=== PATIENT | female | born 1945 | race Caucasian/White ===

== ENCOUNTER 2017-10-23 00:45 | Inpatient (IN) | payer MEDICARE, SELFPAY ==
[2017-10-23] VITALS (16 sets, daily range): BP systolic 119–170; BP diastolic 67–91; PULSE 64–81; RESP 14–18; TEMP 36.3–36.6; O2SAT 96–100; BMI 25.9; BMI 26.0
--- NOTE | 2017-10-23 00:34 | MRI_ITS ---
STUDY: MRA OF THE HEAD WITHOUT CONTRAST REASON FOR EXAM: Female, 72 years old. cva, gait disturbance, irregular speech, blurred vision. TECHNIQUE: 3-D yzuy-oi-ljstae (TOF) imaging was performed with MIPs. The study was performed unenhanced. COMPARISON: None. FINDINGS: Normal bilateral petrous carotid arteries. Normal right cavernous carotid artery with a normal supraclinoid bifurcation. Normal left cavernous carotid artery with a normal supraclinoid bifurcation. Normal right A1 segments of the anterior cerebral artery. Normal left A1 segments of the anterior cerebral artery. Normal intact anterior communicating artery (ACOM). Normal bilateral A2 segments of the anterior cerebral arteries. Normal right M1 and M2 segments of the middle cerebral arteries, with a normal M1 bifurcation. Normal left M1 and M2 segments of the middle cerebral arteries, with a normal M1 bifurcation. Normal bilateral vertebral arteries. Normal basilar artery with a normal basilar bifurcation. The visualized bilateral superior cerebellar (SCA) arteries are normal. Normal bilateral P1, P2 and visualized P3 segments of the posterior cerebral arteries. There is no demonstrated aneurysm of the [place]. There is no major vessel occlusion or hemodynamically significant stenosis. There is no demonstrated abnormality of the visualized brain. MRI/MRA Head ONLY without Contrast IMPRESSION: Normal MRA of the head Electronically Signed: Macy Jamison MD at 8:54 EST Tel , Service support ,
--- NOTE | 2017-10-23 00:34 | MRI_ITS ---
STUDY: MRI BRAIN WITHOUT CONTRAST REASON FOR EXAM: Female, 72 years old. cva, gait disturbance, irregular speech, blurred vision; hx Hodgkins lymphoma- treatment ended 59 TECHNIQUE: Standardized multiplanar fat and water weighted pulse sequences were obtained. COMPARISON: December 19, 2015 FINDINGS: There is mild cerebral atrophy with widening of the extra-axial spaces and ventricular dilatation. There are periventricular and subcortical white matter hyperintensities, consistent with mild chronic microvascular ischemic changes. There are bilateral cerebellar chronic infarctions. There is a new but chronic left lateral temporal infarct as well. Normal bilateral basal ganglia. Normal thalami. There is no extra-axial fluid accumulation. Normal flow voids within the major intracranial circulation suggesting patency by spin echo criteria. Normal sella turcica, pituitary gland, infundibular stalk, optic chiasm and hypothalamus. Normal tectal plate and pineal gland. There is bilateral mastoid air cell fluid. Normal visualized paranasal sinuses. MRI/Brain without Contrast IMPRESSION: No acute intracranial abnormality. Cerebellar and left temporal chronic infarcts. Electronically Signed: Macy Jamison MD at 9:36 EST Tel , Service support ,
--- NOTE | 2017-10-23 00:34 | MRI_ITS ---
STUDY: MRA NECK WITHOUT CONTRAST REASON FOR EXAM: Female, 72 years old. cva, gait disturbance, irregular speech, blurred vision. TECHNIQUE: Source images were obtained, MIPs were performed. The study was performed unenhanced. COMPARISON: None. FINDINGS: RIGHT CAROTID ARTERIES: Normal right common carotid artery (CCA). Normal right common carotid bulb. Normal origin of the right internal carotid (ICA) artery without a hemodynamically significant stenosis. Normal visualized cervical portion of the right internal carotid artery. Normal origin of the right external carotid artery (ECA). LEFT CAROTID ARTERIES: Normal left common carotid artery (CCA). Normal left common carotid bulb. Normal origin of the left internal carotid (ICA) artery without a hemodynamically significant stenosis. Normal visualized cervical portion of the left internal carotid artery. Normal origin of the left external carotid artery (ECA). VERTEBRAL ARTERIES: Normal antegrade flow within the bilateral vertebral artery without a hemodynamically significant stenosis. MRI/MRA Neck without Contrast IMPRESSION: Normal bilateral cervical carotid and vertebral arteries. Electronically Signed: Macy Jamison MD at 8:59 EST Tel , Service support ,
--- NOTE | 2017-10-23 00:37 | ECHOD_ITS ---
Reason For Study: TIA/CVA Procedure This was a 2D Doppler, Color Flow transthoracic echocardiogram. Exam performed portable in patient room. Left Ventricle Mild concentric left ventricular hypertrophy. The estimated ejection fraction is 65 %. No regional wall motion abnormalities noted. Right Ventricle Normal size and thickness. Normal systolic function. Atria Normal left atrium. Normal right atrium. Normal atrial septum. Mitral Valve Mild diffuse mitral valve calcification. Severe mitral annular calcification extending into the posterior leaflet. The mitral papillary muscle appears thickened and/or calcified. Mild mitral valve stenosis. Peak transmitral valve gradient 17 mmHg. Mean transmitral valve gradient 4 mmHg. Tricuspid Valve Normal tricuspid valve. Mild (1+) tricuspid valve insufficiency. Right ventricular systolic pressure estimated to be 29 mmHg. Aortic Valve Trisinus/trileaflet aortic valve. Pulmonic Valve Normal pulmonic valve. Great Vessels Normal aortic root. Normal arch. Normal inferior vena cava. Inferior vena cava collapse with sniff. Pericardium/Pleural No pericardial effusion. MMode/2D Measurements & Calculations LVIDd: 4.0 cm IVSd: 1.2 cm Ao root diam: 3.1 cm LVIDs: 2.7 cm LVPWd: 1.4 cm LA dimension: 3.2 cm RVDd: 3.1 cm FS: 33.8 % LAV(MOD-bp): 61.8 ml LA A4 area: 18.4 cm2 RA A4 area: 10.7 cm2 LAV(MOD-bp) Indexed: 37.5 ml/m2 LAV(MOD-sp2): 63.3 ml LAV(MOD-sp4): 57.2 ml Doppler Measurements & Calculations MV E max femi: 99.8 cm/sec Lat Peak E' Femi: 3.5 cm/sec Med Peak E' Femi: 2.9 cm/sec MV A max femi: 177.4 cm/sec E/E' lat: 28.1 E/E' med: 34.4 MV E/A: 0.56 MV V2 max: 205.9 cm/sec Ao V2 max: 127.3 cm/sec LV V1 max: 95.3 cm/sec MV max P.0 mmHg Ao max P.5 mmHg LV V1 max P.6 mmHg MV V2 mean: 93.5 cm/sec MV mean P.3 mmHg MV V2 VTI: 49.2 cm PA V2 max: 51.8 cm/sec TR max femi: 238.7 cm/sec TR max P.8 mmHg Interpretation Summary Mild concentric left ventricular hypertrophy. The estimated ejection fraction is 65 %. The mitral papillary muscle appears thickened and/or calcified. Mild (1+) tricuspid valve insufficiency. Right ventricular systolic pressure estimated to be 29 mmHg. Mild mitral valve stenosis. Compared to echo report dated 02/21/2016, no appreciable changes noted. Ordering Physician: Ana Hawkins Referring Physician: Justine Vargas Performed By: Susu Briceno RDCS, RVT
--- NOTE | 2017-10-23 00:40 | PCM.HP.STD ---
Problem List (1) History of CVA (cerebrovascular accident) Status: Chronic (2) Acute CVA (cerebrovascular accident) Status: Acute (3) Hodgkin lymphoma, mixed cellularity Status: Chronic Qualifiers: Lymphoma site: unspecified region Qualified Code(s): C81.20 - Mixed cellularity Hodgkin lymphoma, unspecified site History of Present Illness Date of Admission: 10/23/17 Chief Complaint: Unstead gait, blurry vision, aphasia, ? slurred speech. The patient is a 72 y/o F w/ PMHx: Hodgkins Lymphoma Mixed Cellularity undergoing chemo and radiation following w/ Dr. Petit, History of Prior CVA who presents to the [facility] from [facility] [place] ED on 10/23/17 with history of ~ 1 week history of gait disturbance as well as irregular speech w/ garbled speech and difficulty expressing herself in addition to recent increased blurry vision with eventual family member encouragement to present to the ED for evaluation with transfer following [facility]SH ED evaluation to [facility] for further CVA evaluation. She notes taking a daily baby aspirin. At the OSH ED in [place] work-up included T 36.3, BP 150/82, heart rate 64, respiratory rate 18, 95% on room air, CBC with WBC 5, hemoglobin 14, platelet 104 without shift, CMP with sodium 136, chloride 99, CO2 27, potassium 3.7, BUN/Cr 47/1.8 (baseline 0.8), glucose 104, Alk phos 180, AST/ALT 50/77, EKG NSR, trop 0.06, CXR without acute findings, CT head w/ evidence of remote lacunar right cerebellar infarct, acute or subacute left lacunar infarct in the temporal lobe. Past Medical History Past Medical History (Chronic Problems): Chronic Problems History of CVA (cerebrovascular accident) (Chronic) Hodgkin lymphoma, mixed cellularity (Chronic) Allergies Sulfa (Sulfonamide Antibiotics) Allergy (Verified 05/08/17 13:11) Rash Home Medications: Ambulatory Orders Medication Instructions Recorded Multivit with Calcium,Iron,Min 1 each PO DAILY 09/09/15 [Multiple Vitamins For Women] Potassium Chloride [K-Dur] 20 meq PO DAILY 09/09/15 Pred-G 1% Eye Drops 1 drop EACH EYE DAILY 09/09/15 Vitamin K2 100 mcg PO DAILY 09/27/15 Vits A,C,E/Lutein/Minerals 1 each PO DAILY 09/27/15 [Ocuvite with Lutein Tablet] Cholecalciferol (Vitamin D3) 2,000 unit PO DAILY 10/11/15 [D3-2000] Brimonidine 0.15% [Alphagan P 1 drop EACH EYE DAILY 12/06/15 0.15%] Magnesium 400 mg PO BID 12/06/15 Ocuvite with Lutein Tablet 1 tab PO DAILY 12/26/16 Surgical History: - - Corneal transplant bilaterally, lymph node biopsies in the neck, tonsillectomy, appendectomy. 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 Denies: Chills, Fever, Weight Change Eyes: Reports: Blurred vision HEENT: Denies: Head Aches, Sinus Congestion, Sinus Drainage Cardiovascular: Denies: Chest Pain, Palpitations Respiratory: Denies: Cough, Shortness of breath at rest, Sputum production Gastrointestinal: Denies: Abdominal Pain, Nausea, Vomiting Genitourinary: Denies: Dysuria Musculoskeletal: Denies: Joint Pain, Joint Tenderness Skin: Denies: Rash, Wounds Neurological: Reports: Balance problems, Change in Speech, Slurred speech. Denies: Focal weakness, Numbness, Tingling Psychiatric: Denies: Anxiety, Depression, Homicidal Ideations, Suicidal Ideations Hematologic/ Lymphatic: Reports: Anemia. Denies: Easy Bruising, Easy Bleeding VTE Information - Inpt Only VTE Present on Admission: No VTE Mechan Device Prophylaxis: SCD's VTE Pharm Prophylaxis ordered?: Yes Subjective: Seated upright in the bed, NAD. Objective: Physical Examination: General: awake, alert, oriented x 3 but speech slow, pressured somewhat, cooperative, seated upright in bed in no apparent distress. Skin: normal color, turgor, no icterus, cyanosis. HEENT: AT/NC, EOMI, PERRLA, mildly dry MM, no carotid bruits or JVD noted. Lungs: CTA bilaterally, moderate effort, mild decrease BL bases, no rales, ronchi or wheezing. Heart: Regular rate and rhythm; no gallop, rub audible. Abdomen: soft, NTTP, ND, normal BS, no HSM. Extremities: no cyanosis, clubbing, or edema. Neurological: patient awake, alert, oriented x 3; cognitive function appears intact but suspect mildly decreased from baseline; pupils equally reactive to light and accomodation, no peripheral vision deficits, only complaint of blurry vision w/ need to bring things close to read; cranial nerves II-XII grossly normal, moving all 4 extremities, no focal deficits, strength appears preserved, HTS and FTN not marked, equiv babinski, aphasia present. Psychiatric: affect appears mildly flat, no acute evidence of depressive or anxiety feelings. Assessment/Plan The patient is a 72 y/o F w/ PMHx: Hodgkins Lymphoma Mixed Cellularity undergoing chemo and radiation following w/ Dr. Petit, History of Prior CVA who presents to the [facility] from [facility] [place] ED on 10/23/17 with history of ~ 1 week history of gait disturbance as well as irregular speech w/ garbled speech and difficulty expressing herself in addition to recent increased blurry vision with eventual family member encouragement to present to the ED for evaluation with transfer following OSH ED evaluation to [facility] for further CVA evaluation. (1) Acute or possible Subacute L Lacunar Temporal Lobe Infarction: O[facility] ED in [place] work-up included T 36.3, BP 150/82, heart rate 64, respiratory rate 18, 95% on room air, CBC with WBC 5, hemoglobin 14, platelet 104 without shift, CMP with sodium 136, chloride 99, CO2 27, potassium 3.7, BUN/Cr 47/1.8 (baseline 0.8), glucose 104, Alk phos 180, AST/ALT 50/77, EKG NSR, trop 0.06, CXR without acute findings, CT head w/ evidence of remote lacunar right cerebellar infarct, acute or subacute left lacunar infarct in the temporal lobe.Patient was administered additional ASA in the O[facility] ED. Will admit as direct admission to PCU, will obtain MRI Brain, MRA Head and Neck, ECHO, PT/OT/Speech/Nutrition evaluation per protocol. Will consult Neurology for evaluation given ongoing history. Will allow permissive HTN, maintain on asa-->transition to plavix, add statin w/ AM FLP, fall precautions. (2) Acute kidney injury: Unclear specific etiology, possible dehydration. Admission BUN/Cr 47/1.8, prior baseline creatinine noted to be 0.8. Will hydrate, hold nephrotoxic medications and repeat chemistry in AM. If no improvement would plan FeNa and renal US assessment. (3) Hodgkins Lymphoma Mixed Cellularity: Currently following w/ Dr. Petit, undergoing chemo and radiation. Mag, phos pending. (4) Elevated BP without HTN Dx: ED presentation BP elevated, continue to trend, currently permissive given acute CVA, if further elevated will add regimen once appropriate. (5) DVT Prophylaxis: SCDs, heparin. Code Visit Inpatient E&M: 22618 Init Hosp L3
--- NOTE | 2017-10-23 00:49 | HP.PCM_ITS ---
Problem List (1) History of CVA (cerebrovascular accident) Status: Chronic (2) Acute CVA (cerebrovascular accident) Status: Acute (3) Hodgkin lymphoma, mixed cellularity Status: Chronic Qualifiers: Lymphoma site: unspecified region Qualified Code(s): C81.20 - Mixed cellularity Hodgkin lymphoma, unspecified site History of Present Illness Date of Admission: 10/23/17 Chief Complaint: Unstead gait, blurry vision, aphasia, ? slurred speech. The patient is a 72 y/o F w/ PMHx: Hodgkins Lymphoma Mixed Cellularity undergoing chemo and radiation following w/ Dr. Petit, History of Prior CVA who presents to the [facility] from [facility] [place] ED on 10/23/17 with history of ~ 1 week history of gait disturbance as well as irregular speech w/ garbled speech and difficulty expressing herself in addition to recent increased blurry vision with eventual family member encouragement to present to the ED for evaluation with transfer following OSH ED evaluation to [facility] for further CVA evaluation. She notes taking a daily baby aspirin. At the OSH ED in [place] work-up included T 36.3, BP 150/82, heart rate 64, respiratory rate 18, 95% on room air , CBC with WBC 5, hemoglobin 14, platelet 104 without shift, CMP with sodium 136 , chloride 99, CO2 27, potassium 3.7, BUN/Cr 47/1.8 (baseline 0.8), glucose 104 , Alk phos 180, AST/ALT 50/77, EKG NSR, trop 0.06, CXR without acute findings, CT head w/ evidence of remote lacunar right cerebellar infarct, acute or subacute left lacunar infarct in the temporal lobe. Past Medical History Past Medical History (Chronic Problems): Chronic Problems History of CVA (cerebrovascular accident) (Chronic) Hodgkin lymphoma, mixed cellularity (Chronic) Allergies Sulfa (Sulfonamide Antibiotics) Allergy (Verified 05/08/17 13:11) Rash Home Medications: Ambulatory Orders Medication Instructions Recorded Multivit with Calcium,Iron,Min 1 each PO DAILY 09/09/15 [Multiple Vitamins For Women] Potassium Chloride [K-Dur] 20 meq PO DAILY 09/09/15 Pred-G 1% Eye Drops 1 drop EACH EYE DAILY 09/09/15 Vitamin K2 100 mcg PO DAILY 09/27/15 Vits A,C,E/Lutein/Minerals 1 each PO DAILY 09/27/15 [Ocuvite with Lutein Tablet] Cholecalciferol (Vitamin D3) 2,000 unit PO DAILY 10/11/15 [D3-2000] Brimonidine 0.15% [Alphagan P 1 drop EACH EYE DAILY 12/06/15 0.15%] Magnesium 400 mg PO BID 12/06/15 Ocuvite with Lutein Tablet 1 tab PO DAILY 12/26/16 Surgical History: - - Corneal transplant bilaterally, lymph node biopsies in the neck, tonsillectomy, appendectomy. 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 Denies: Chills, Fever, Weight Change Eyes: Reports: Blurred vision HEENT: Denies: Head Aches, Sinus Congestion, Sinus Drainage Cardiovascular: Denies: Chest Pain, Palpitations Respiratory: Denies: Cough, Shortness of breath at rest, Sputum production Gastrointestinal: Denies: Abdominal Pain, Nausea, Vomiting Genitourinary: Denies: Dysuria Musculoskeletal: Denies: Joint Pain, Joint Tenderness Skin: Denies: Rash, Wounds Neurological: Reports: Balance problems, Change in Speech, Slurred speech. Denies: Focal weakness, Numbness, Tingling Psychiatric: Denies: Anxiety, Depression, Homicidal Ideations, Suicidal Ideations Hematologic/ Lymphatic: Reports: Anemia. Denies: Easy Bruising, Easy Bleeding VTE Information - Inpt Only VTE Present on Admission: No VTE Mechan Device Prophylaxis: SCD's VTE Pharm Prophylaxis ordered?: Yes Subjective: Seated upright in the bed, NAD. Objective: Physical Examination: General: awake, alert, oriented x 3 but speech slow, pressured somewhat, cooperative, seated upright in bed in no apparent distress. Skin: normal color, turgor, no icterus, cyanosis. HEENT: AT/NC, EOMI, PERRLA, mildly dry MM, no carotid bruits or JVD noted. Lungs: CTA bilaterally, moderate effort, mild decrease BL bases, no rales, ronchi or wheezing. Heart: Regular rate and rhythm; no gallop, rub audible. Abdomen: soft, NTTP, ND, normal BS, no HSM. Extremities: no cyanosis, clubbing, or edema. Neurological: patient awake, alert, oriented x 3; cognitive function appears intact but suspect mildly decreased from baseline; pupils equally reactive to light and accomodation, no peripheral vision deficits, only complaint of blurry vision w/ need to bring things close to read; cranial nerves II-XII grossly normal, moving all 4 extremities, no focal deficits, strength appears preserved , HTS and FTN not marked, equiv babinski, aphasia present. Psychiatric: affect appears mildly flat, no acute evidence of depressive or anxiety feelings. Assessment/Plan The patient is a 72 y/o F w/ PMHx: Hodgkins Lymphoma Mixed Cellularity undergoing chemo and radiation following w/ Dr. Petit, History of Prior CVA who presents to the [facility] from [facility] [place] ED on 10/23/17 with history of ~ 1 week history of gait disturbance as well as irregular speech w/ garbled speech and difficulty expressing herself in addition to recent increased blurry vision with eventual family member encouragement to present to the ED for evaluation with transfer following OSH ED evaluation to [facility] for further CVA evaluation. (1) Acute or possible Subacute L Lacunar Temporal Lobe Infarction: O[facility] ED in [place] work-up included T 36.3, BP 150/82, heart rate 64, respiratory rate 18, 95% on room air, CBC with WBC 5, hemoglobin 14, platelet 104 without shift, CMP with sodium 136, chloride 99, CO2 27, potassium 3.7, BUN/Cr 47/1.8 (baseline 0.8 ), glucose 104, Alk phos 180, AST/ALT 50/77, EKG NSR, trop 0.06, CXR without acute findings, CT head w/ evidence of remote lacunar right cerebellar infarct, acute or subacute left lacunar infarct in the temporal lobe.Patient was administered additional ASA in the [facility] ED. Will admit as direct admission to PCU , will obtain MRI Brain, MRA Head and Neck, ECHO, PT/OT/Speech/Nutrition evaluation per protocol. Will consult Neurology for evaluation given ongoing history. Will allow permissive HTN, maintain on asa-->transition to plavix, add statin w/ AM FLP, fall precautions. (2) Acute kidney injury: Unclear specific etiology, possible dehydration. Admission BUN/Cr 47/1.8, prior baseline creatinine noted to be 0.8. Will hydrate , hold nephrotoxic medications and repeat chemistry in AM. If no improvement would plan FeNa and renal US assessment. (3) Hodgkins Lymphoma Mixed Cellularity: Currently following w/ Dr. Petit, undergoing chemo and radiation. Mag, phos pending. (4) Elevated BP without HTN Dx: ED presentation BP elevated, continue to trend, currently permissive given acute CVA, if further elevated will add regimen once appropriate. (5) DVT Prophylaxis: SCDs, heparin. Code Visit Inpatient E&M: 22805 Init Hosp L3
[2017-10-23] MEDS: 0.9% Normal Saline 1,000 ML 125 ML IV (02:20)
[2017-10-23 04:19] LABS: Phosphorus 3.2 mg/dL (2.5-4.9)
[2017-10-23 06:02] LABS: Hematocrit 40.6 % (37-47); Hemoglobin 13.2 g/dl (12.0-15.0); Mean Corp Hgb Conc 32.5 g/gl (32-36); Mean Corpuscular Hgb 30.1 pg (27.0-32.0); Mean Corpuscular Volume 92.7 fL (81-99); Mean Platelet Vol. 11.3 fl (6.2-12.0); Platelet Count 93 K/mm3 (150-450); RBC Distribution Width CV 14.4 % (11.6-14.6); RBC Distribution Width SD 48.7 fl (35.1-43.9); Red Blood Count 4.38 M/mm3 (4.2-5.4); White Blood Count 3.3 K/mm3 (4.4-11.0)
[2017-10-23 06:21] LABS: Scan Indicated on CBC? Y/N NO
[2017-10-23 06:52] LABS: Anion Gap 9 (5-15); BUN 43 mg/dL (7-18); BUN/Creat Ratio 29.7 RATIO (10-20); Calcium,Total 13.1 mg/dL (8.5-10.1); Chloride 104 mmol/L (98-107); Cholesterol 205 mg/dL (200); Creatinine, Serum 1.45 mg/dL (0.55-1.02); EST Glomerular Filtration Rate 38 mL/min (>60); Est Glom Filt Rate - Afr Amer 45 mL/min (>60); Estimated Creatinine Clearance 27.33 ml/min; Glucose 94 mg/dL (70-110); High Density Lipoprotein 38 mg/dL; Potassium 3.3 mmol/L (3.5-5.1); Sodium Level 141 mmol/L (136-145); Triglycerides 149 mg/dL; Very Low Density Lipoprotein 30 mg/dL (5-40)
--- NOTE | 2017-10-23 07:47 | NURSING ---
Pt gave herself her own eyedrops this AM. They eyedrops are not on the MAR. Edgardo ARREOLA notified.
[2017-10-23] MEDS: Magnesium Oxide 400 MG Tablet PO ×2 (09:10→22:33)
[2017-10-23] MEDS: Famotidine 20 MG Tablet PO ×2 (09:10→22:34)
[2017-10-23] MEDS: Multivitamins,Ther W-Minerals Tablet 1 TABLET PO (09:10)
[2017-10-23] MEDS: Clopidogrel Bisulfate 75 MG Tablet PO (09:11)
--- NOTE | 2017-10-23 10:29 | CASEMGMT ---
SW reviewed chart and noted PT/OT is recommending inpatient rehab. SW will wait and see what Neurology thinks as per the radiologist she did not have an acute Stroke. SW met with patient, introduced self and role at [facility]. She lives alone in a 1 story home and is normally independent. She does not use any assistive devices. HAMZAH asked her if she would consider going somewhere short term for rehab at d/c. SW mentioned [facility], [facility], and [facility] as these are all in [place]. She said she would consider this. SW to await Neurology's input and will also talk with family. Kristin LATHAM MSW
--- NOTE | 2017-10-23 11:36 | NURSING ---
Attempted to go over Home Medication list with patient. Unable to read/comprehend list. Patient reports she only takes vitamins/supplements.
[2017-10-23 12:08] LABS: Magnesium 1.8 mg/dL (1.6-2.6)
--- NOTE | 2017-10-23 12:20 | PCM.CONS.GEN ---
Reason for Consult Date of Consultation: 10/23/17 Reason for Consultation: cva History of Present Illness: The patient is a 72 year old F right handed white female who came in to the ed last night at the behest of her daughter and friend due to gait abnormality, abnormal handwriting, and some slowness of her speech for about one week. no history of snoring or eds. takes daily asa at home. not on statin previously, no tobacco use. 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 Petit, History of Prior CVA who presents to the [facility] from OSH [place] ED on 10/23/17 with history of ~ 1 week history of gait disturbance as well as irregular speech w/ garbled speech and difficulty expressing herself in addition to recent increased blurry vision with eventual family member encouragement to present to the ED for evaluation with transfer following OSH ED evaluation to [facility] for further CVA evaluation. She notes taking a daily baby aspirin. At the OSH ED in [place] work-up included T 36.3, BP 150/82, heart rate 64, respiratory rate 18, 95% on room air, CBC with WBC 5, hemoglobin 14, platelet 104 without shift, CMP with sodium 136, chloride 99, CO2 27, potassium 3.7, BUN/Cr 47/1.8 (baseline 0.8), glucose 104, Alk phos 180, AST/ALT 50/77, EKG NSR, trop 0.06, CXR without acute findings, CT head w/ evidence of remote lacunar right cerebellar infarct, acute or subacute left lacunar infarct in the temporal lobe. Past Medical History Past Medical History (Chronic Problems): Chronic Problems History of CVA (cerebrovascular accident) (Chronic) Hodgkin lymphoma, mixed cellularity (Chronic) Allergies Sulfa (Sulfonamide Antibiotics) Allergy (Verified 05/08/17 13:11) Rash Eyedrops Adverse Reaction (Uncoded 10/23/17 00:58) Itching Home Medications: Ambulatory Orders Medication Instructions Recorded Multivit with Calcium,Iron,Min 1 each PO DAILY 09/09/15 [Multiple Vitamins For Women] Potassium Chloride [K-Dur] 20 meq PO DAILY 09/09/15 Pred-G 1% Eye Drops 1 drop EACH EYE DAILY 09/09/15 Vitamin K2 100 mcg PO DAILY 09/27/15 Vits A,C,E/Lutein/Minerals 1 each PO DAILY 09/27/15 [Ocuvite with Lutein Tablet] Cholecalciferol (Vitamin D3) 2,000 unit PO DAILY 10/11/15 [D3-2000] Brimonidine 0.15% [Alphagan P 1 drop EACH EYE DAILY 12/06/15 0.15%] Magnesium 400 mg PO BID 12/06/15 Ocuvite with Lutein Tablet 1 tab PO DAILY 12/26/16 Surgical History: - - Corneal transplant bilaterally, lymph node biopsies in the neck, tonsillectomy, appendectomy. Psychiatric History: No pertinent psych hx [employer] History: No pertinent [employer] history Lives: Alone Smoking Status: Never smoker Tobacco Use: Non-smoker Alcohol: None Drugs: None - *Family History Maternal History Items: Heart Disease Paternal History Items: Heart Disease Review of Systems Constitutional: Denies: Chills, Fever, Weight Change HEENT: Denies: Head Aches, Sinus Congestion, Sinus Drainage Cardiovascular: Denies: Chest Pain, Palpitations Respiratory: Denies: Cough, Shortness of breath at rest, Sputum production Gastrointestinal: Denies: Abdominal Pain, Nausea, Vomiting Genitourinary: Denies: Dysuria Musculoskeletal: Denies: Joint Pain, Joint Tenderness Skin: Denies: Rash, Wounds Neurological: Denies: Numbness, Tingling, Focal weakness Psychiatric: Denies: Anxiety, Depression, Homicidal Ideations, Suicidal Ideations Hematologic/ Lymphatic: Denies: Easy Bruising, Easy Bleeding - Physical Exam General: Alert, Oriented x3, Cooperative HEENT: Atraumatic, PERRLA, EOMI, Normocephalic Neck: Supple, No JVD, Negative Carotid Bruits Lungs: Clear to auscultation, Normal air movement Cardiovascular: Regular rate, No murmurs Abdomen: Bowel Sounds Present, Soft, Non Tender Extremities: No edema, Capillary Refill Less than 3 Seconds Skin: No rashes, No breakdown Musculoskeletal: No Tenderness to Palpation of Joints or Extremities Neurological: Cranial nerves II-XII grossly intact, Slurred Speech, Unsteady Gait, - - lue mild discoord speech dysarthric Psych/Mental Status: Normal Affect, Appropriate Vital Signs Temp Pulse Resp BP Pulse Ox 36.4 C L 74 18 139/77 H 99 10/23/17 08:19 10/23/17 11:09 10/23/17 08:19 10/23/17 08:19 10/23/17 08:19 Oxygen Delivery Method Room Air Weight: 64.4 kg Body Mass Index (BMI) 25.9 Intake and Output for Last 24 Hours 10/21/17 10/22/17 10/23/17 23:59 23:59 23:59 Intake Total 567 / 567 Balance 567 / 567 Laboratory Tests Past 24 Hrs 10/23/17 10/23/17 10/23/17 01:17 01:17 05:25 WBC 3.3 L RBC 4.38 Hgb 13.2 Hct 40.6 MCV 92.7 MCH 30.1 MCHC 32.5 RDW 14.4 RDW Differential 48.7 H Plt Count 93 L MPV 11.3 Sodium Potassium Chloride Carbon Dioxide Anion Gap BUN Creatinine Estim Creat Clear Calc Est GFR (MDRD) Af Amer Est GFR (MDRD) Non-Af BUN/Creatinine Ratio Glucose Calcium Phosphorus 3.2 Magnesium 1.8 Triglycerides Cholesterol LDL Cholesterol VLDL Cholesterol HDL Cholesterol Vitamin D 25-Hydroxy TSH 9.40 H 10/23/17 10/23/17 05:25 11:40 WBC RBC Hgb Hct MCV MCH MCHC RDW RDW Differential Plt Count MPV Sodium 141 Potassium 3.3 L Chloride 104 Carbon Dioxide 28.0 Anion Gap 9 BUN 43 H Creatinine 1.45 H Estim Creat Clear Calc 27.33 Est GFR (MDRD) Af Amer 45 L Est GFR (MDRD) Non-Af 38 L BUN/Creatinine Ratio 29.7 H Glucose 94 Calcium 13.1 H* Phosphorus Magnesium Triglycerides 149 Cholesterol 205 H LDL Cholesterol 137 H VLDL Cholesterol 30 HDL Cholesterol 38 L Vitamin D 25-Hydroxy Pending TSH Current Home Med List Medication Instructions Recorded Confirmed Type Multivit with Calcium,Iron,Min 1 each PO DAILY 09/09/15 02/06/17 History [Multiple Vitamins For Women] Potassium Chloride [K-Dur] 20 meq PO DAILY 09/09/15 02/06/17 History Pred-G 1% Eye Drops 1 drop EACH EYE DAILY 09/09/15 05/08/17 History Vitamin K2 100 mcg PO DAILY 09/27/15 02/06/17 History Vits A,C,E/Lutein/Minerals 1 each PO DAILY 09/27/15 02/06/17 History [Ocuvite with Lutein Tablet] Cholecalciferol (Vitamin D3) 2,000 unit PO DAILY 10/11/15 02/06/17 History [D3-2000] Brimonidine 0.15% [Alphagan P 1 drop EACH EYE DAILY 12/06/15 05/08/17 History 0.15%] Magnesium 400 mg PO BID 12/06/15 02/06/17 History Ocuvite with Lutein Tablet 1 tab PO DAILY 12/26/16 05/08/17 History since one year takes daily baby asa at home Current Medications Atorvastatin Calcium 80 mg 10/23/17 10:00 10/23/17 09:13 Lipitor PO Not Given DAILY [facility] Brimonidine Tartrate 1 drop 10/23/17 10:00 10/23/17 09:19 Alphagan P 0.15% EACH EYE Not Given DAILY [facility] Clopidogrel Bisulfate 75 mg 10/23/17 10:00 10/23/17 09:11 Plavix PO 75 mg DAILY [facility] Administration Famotidine 20 mg 10/23/17 10:00 10/23/17 09:10 Pepcid PO 20 mg BID [facility] Administration Heparin Sodium (Porcine) 5,000 unit 10/23/17 10:00 10/23/17 10:52 Heparin Na SC 5,000 u BID [facility] Administration Labetalol HCl 10 mg 10/23/17 00:34 Trandate IV 10/24/17 00:35 Q10M PRN MAINTAIN SBP GOALS Magnesium Hydroxide 30 ml 10/23/17 00:34 Milk Of Magnesia PO DAILY PRN Constipation Magnesium Oxide 400 mg 10/23/17 10:00 10/23/17 09:10 Mag-Ox 400 PO 400 mg BID [facility] Administration Multivitamins/Minerals 1 tablet 10/23/17 08:00 10/23/17 09:10 Multivitamin With Minerals PO 1 tablet DAILY@0800 [facility] Administration Nutritional Formula (Lactose Free) 120 ml 10/23/17 10:00 10/23/17 09:14 Ensure Enlive PO Not Given 4X/DAY [facility] Ondansetron HCl 4 mg 10/23/17 00:34 Zofran IV Q8H PRN PRN NAUSEA Potassium Chloride 20 meq 10/23/17 10:00 10/23/17 09:10 K-Dur PO 20 meq DAILY [facility] Administration Promethazine HCl 12.5 mg 10/23/17 00:34 Phenergan (Ll) IV Q6H PRN PRN NAUSEA/VOMITING Sodium Chloride 5 - 30 ml 10/23/17 03:29 IV UD PRN SALINE FLUSH mri reviewed, acute right cerebellar infarct and small left occip infarct mra unremarkeable echo normal Assessment/Plan bilateral posterior circulation infarcts, acute, plavix statin bp control pt/ot/sp consider rehab echo: normal tele
--- NOTE | 2017-10-23 12:26 | CON.PCM_ITS ---
Reason for Consult Date of Consultation: 10/23/17 Reason for Consultation: cva History of Present Illness: The patient is a 72 year old F right handed white female who came in to the ed last night at the behest of her daughter and friend due to gait abnormality, abnormal handwriting, and some slowness of her speech for about one week. no history of snoring or eds. takes daily asa at home. not on statin previously, no tobacco use. 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 Petit, History of Prior CVA who presents to the [facility] from OSH [place] ED on 10/23/17 with history of ~ 1 week history of gait disturbance as well as irregular speech w/ garbled speech and difficulty expressing herself in addition to recent increased blurry vision with eventual family member encouragement to present to the ED for evaluation with transfer following OSH ED evaluation to [facility] for further CVA evaluation. She notes taking a daily baby aspirin. At the OSH ED in [place] work-up included T 36.3, BP 150/82, heart rate 64, respiratory rate 18, 95% on room air , CBC with WBC 5, hemoglobin 14, platelet 104 without shift, CMP with sodium 136 , chloride 99, CO2 27, potassium 3.7, BUN/Cr 47/1.8 (baseline 0.8), glucose 104 , Alk phos 180, AST/ALT 50/77, EKG NSR, trop 0.06, CXR without acute findings, CT head w/ evidence of remote lacunar right cerebellar infarct, acute or subacute left lacunar infarct in the temporal lobe. Past Medical History Past Medical History (Chronic Problems): Chronic Problems History of CVA (cerebrovascular accident) (Chronic) Hodgkin lymphoma, mixed cellularity (Chronic) Allergies Sulfa (Sulfonamide Antibiotics) Allergy (Verified 05/08/17 13:11) Rash Eyedrops Adverse Reaction (Uncoded 10/23/17 00:58) Itching Home Medications: Ambulatory Orders Medication Instructions Recorded Multivit with Calcium,Iron,Min 1 each PO DAILY 09/09/15 [Multiple Vitamins For Women] Potassium Chloride [K-Dur] 20 meq PO DAILY 09/09/15 Pred-G 1% Eye Drops 1 drop EACH EYE DAILY 09/09/15 Vitamin K2 100 mcg PO DAILY 09/27/15 Vits A,C,E/Lutein/Minerals 1 each PO DAILY 09/27/15 [Ocuvite with Lutein Tablet] Cholecalciferol (Vitamin D3) 2,000 unit PO DAILY 10/11/15 [D3-2000] Brimonidine 0.15% [Alphagan P 1 drop EACH EYE DAILY 12/06/15 0.15%] Magnesium 400 mg PO BID 12/06/15 Ocuvite with Lutein Tablet 1 tab PO DAILY 12/26/16 Surgical History: - - Corneal transplant bilaterally, lymph node biopsies in the neck, tonsillectomy, appendectomy. Psychiatric History: No pertinent psych hx [employer] History: No pertinent [employer] history Lives: Alone Smoking Status: Never smoker Tobacco Use: Non-smoker Alcohol: None Drugs: None - *Family History Maternal History Items: Heart Disease Paternal History Items: Heart Disease Review of Systems Constitutional: Denies: Chills, Fever, Weight Change HEENT: Denies: Head Aches, Sinus Congestion, Sinus Drainage Cardiovascular: Denies: Chest Pain, Palpitations Respiratory: Denies: Cough, Shortness of breath at rest, Sputum production Gastrointestinal: Denies: Abdominal Pain, Nausea, Vomiting Genitourinary: Denies: Dysuria Musculoskeletal: Denies: Joint Pain, Joint Tenderness Skin: Denies: Rash, Wounds Neurological: Denies: Numbness, Tingling, Focal weakness Psychiatric: Denies: Anxiety, Depression, Homicidal Ideations, Suicidal Ideations Hematologic/ Lymphatic: Denies: Easy Bruising, Easy Bleeding - Physical Exam General: Alert, Oriented x3, Cooperative HEENT: Atraumatic, PERRLA, EOMI, Normocephalic Neck: Supple, No JVD, Negative Carotid Bruits Lungs: Clear to auscultation, Normal air movement Cardiovascular: Regular rate, No murmurs Abdomen: Bowel Sounds Present, Soft, Non Tender Extremities: No edema, Capillary Refill Less than 3 Seconds Skin: No rashes, No breakdown Musculoskeletal: No Tenderness to Palpation of Joints or Extremities Neurological: Cranial nerves II-XII grossly intact, Slurred Speech, Unsteady Gait, - - lue mild discoord speech dysarthric Psych/Mental Status: Normal Affect, Appropriate Vital Signs Temp Pulse Resp BP Pulse Ox 36.4 C L 74 18 139/77 H 99 10/23/17 08:19 10/23/17 11:09 10/23/17 08:19 10/23/17 08:19 10/23/17 08:19 Oxygen Delivery Method Room Air Weight: 64.4 kg Body Mass Index (BMI) 25.9 Intake and Output for Last 24 Hours 10/21/17 10/22/17 10/23/17 23:59 23:59 23:59 Intake Total 567 / 567 Balance 567 / 567 Laboratory Tests Past 24 Hrs 10/23/17 10/23/17 10/23/17 01:17 01:17 05:25 WBC 3.3 L RBC 4.38 Hgb 13.2 Hct 40.6 MCV 92.7 MCH 30.1 MCHC 32.5 RDW 14.4 RDW Differential 48.7 H Plt Count 93 L MPV 11.3 Sodium Potassium Chloride Carbon Dioxide Anion Gap BUN Creatinine Estim Creat Clear Calc Est GFR (MDRD) Af Amer Est GFR (MDRD) Non-Af BUN/Creatinine Ratio Glucose Calcium Phosphorus 3.2 Magnesium 1.8 Triglycerides Cholesterol LDL Cholesterol VLDL Cholesterol HDL Cholesterol Vitamin D 25-Hydroxy TSH 9.40 H 10/23/17 10/23/17 05:25 11:40 WBC RBC Hgb Hct MCV MCH MCHC RDW RDW Differential Plt Count MPV Sodium 141 Potassium 3.3 L Chloride 104 Carbon Dioxide 28.0 Anion Gap 9 BUN 43 H Creatinine 1.45 H Estim Creat Clear Calc 27.33 Est GFR (MDRD) Af Amer 45 L Est GFR (MDRD) Non-Af 38 L BUN/Creatinine Ratio 29.7 H Glucose 94 Calcium 13.1 H* Phosphorus Magnesium Triglycerides 149 Cholesterol 205 H LDL Cholesterol 137 H VLDL Cholesterol 30 HDL Cholesterol 38 L Vitamin D 25-Hydroxy Pending TSH Current Home Med List Medication Instructions Recorded Confirmed Type Multivit with Calcium,Iron,Min 1 each PO DAILY 09/09/15 02/06/17 History [Multiple Vitamins For Women] Potassium Chloride [K-Dur] 20 meq PO DAILY 09/09/15 02/06/17 History Pred-G 1% Eye Drops 1 drop EACH EYE DAILY 09/09/15 05/08/17 History Vitamin K2 100 mcg PO DAILY 09/27/15 02/06/17 History Vits A,C,E/Lutein/Minerals 1 each PO DAILY 09/27/15 02/06/17 History [Ocuvite with Lutein Tablet] Cholecalciferol (Vitamin D3) 2,000 unit PO DAILY 10/11/15 02/06/17 History [D3-2000] Brimonidine 0.15% [Alphagan P 1 drop EACH EYE DAILY 12/06/15 05/08/17 History 0.15%] Magnesium 400 mg PO BID 12/06/15 02/06/17 History Ocuvite with Lutein Tablet 1 tab PO DAILY 12/26/16 05/08/17 History since one year takes daily baby asa at home Current Medications Atorvastatin Calcium 80 mg 10/23/17 10:00 10/23/17 09:13 Lipitor PO Not Given DAILY [facility] Brimonidine Tartrate 1 drop 10/23/17 10:00 10/23/17 09:19 Alphagan P 0.15% EACH EYE Not Given DAILY [facility] Clopidogrel Bisulfate 75 mg 10/23/17 10:00 10/23/17 09:11 Plavix PO 75 mg DAILY [facility] Administration Famotidine 20 mg 10/23/17 10:00 10/23/17 09:10 Pepcid PO 20 mg BID [facility] Administration Heparin Sodium (Porcine) 5,000 unit 10/23/17 10:00 10/23/17 10:52 Heparin Na SC 5,000 u BID [facility] Administration Labetalol HCl 10 mg 10/23/17 00:34 Trandate IV 10/24/17 00:35 Q10M PRN MAINTAIN SBP GOALS Magnesium Hydroxide 30 ml 10/23/17 00:34 Milk Of Magnesia PO DAILY PRN Constipation Magnesium Oxide 400 mg 10/23/17 10:00 10/23/17 09:10 Mag-Ox 400 PO 400 mg BID [facility] Administration Multivitamins/Minerals 1 tablet 10/23/17 08:00 10/23/17 09:10 Multivitamin With Minerals PO 1 tablet DAILY@0800 [facility] Administration Nutritional Formula (Lactose Free) 120 ml 10/23/17 10:00 10/23/17 09:14 Ensure Enlive PO Not Given 4X/DAY [facility] Ondansetron HCl 4 mg 10/23/17 00:34 Zofran IV Q8H PRN PRN NAUSEA Potassium Chloride 20 meq 10/23/17 10:00 10/23/17 09:10 K-Dur PO 20 meq DAILY [facility] Administration Promethazine HCl 12.5 mg 10/23/17 00:34 Phenergan (Ll) IV Q6H PRN PRN NAUSEA/VOMITING Sodium Chloride 5 - 30 ml 10/23/17 03:29 IV UD PRN SALINE FLUSH mri reviewed, acute right cerebellar infarct and small left occip infarct mra unremarkeable echo normal Assessment/Plan bilateral posterior circulation infarcts, acute, plavix statin bp control pt/ot/sp consider rehab echo: normal tele
[2017-10-23 12:33] LABS: Vitamin D,25 Hydroxy 30.4 ng/mL
[2017-10-23] MEDS: 0.9% Normal Saline 1,000 ML 150 ML IV ×2 (12:53→19:23)
--- NOTE | 2017-10-23 15:19 | CASEMGMT ---
late entry note from 10-23-17 HAMZAH reviewed Neurologists note and patient did in fact have a stroke. HAMZAH called Brielle in the rehab unit and left her a voice mail with referral. Kristin LATHAM MSW
[2017-10-24] VITALS (14 sets, daily range): BP systolic 108–160; BP diastolic 51–72; PULSE 38–65; RESP 16–18; TEMP 36.4–36.9; O2SAT 95–99; BMI 25.9
[2017-10-24] MEDS: 0.9% Normal Saline 1,000 ML 150 ML IV ×4 (02:14→22:15)
[2017-10-24 07:11] LABS: Anion Gap 8 (5-15); BUN 35 mg/dL (7-18); BUN/Creat Ratio 27.6 RATIO (10-20); Calcium,Total 12.3 mg/dL (8.5-10.1); Chloride 112 mmol/L (98-107); Creatinine, Serum 1.27 mg/dL (0.55-1.02); EST Glomerular Filtration Rate 44 mL/min (>60); Est Glom Filt Rate - Afr Amer 53 mL/min (>60); Glucose 89 mg/dL (70-110); Potassium 3.3 mmol/L (3.5-5.1); Sodium Level 146 mmol/L (136-145)
--- NOTE | 2017-10-24 07:12 | PCM.PN.HOSP ---
Subjective: Late entry note: Patient was seen and examined. No new complains. Still has gait imbalance. Vitals/I&O's: Vital Signs Temp Pulse Resp BP Pulse Ox 98.4 F 62 18 143/70 H 96 10/24/17 06:20 10/24/17 06:20 10/24/17 06:20 10/24/17 06:20 10/24/17 06:20 Oxygen Delivery Method Room Air Weight: 64.4 kg Body Mass Index (BMI) 25.9 Intake and Output for Last 24 Hours 10/22/17 10/23/17 10/24/17 23:59 23:59 23:59 Intake Total 3557 / 7 972 / 972 Balance 3557 / 3556 972 / 972 General: Alert, Oriented x3, Cooperative, No apparent distress HEENT: Atraumatic, PERRLA, EOMI, Normocephalic Oral: Moist Mucosa Neck: Supple Lungs: Clear to auscultation, Normal air movement Cardiovascular: Regular rate, Regular Rhythm, Normal S1, Normal S2, No murmurs Abdomen: Bowel Sounds Present, Soft, Non Tender, Non-Distended, No Hepato-splenomegaly Extremities: No edema Skin: No rashes, No breakdown Musculoskeletal: No Tenderness to Palpation of Joints or Extremities Lymphatic: No Cervical, Supraclavicular, or Inguinal Adenopathy Neurological: Cranial nerves II-XII grossly intact Psych/Mental Status: Normal Affect, Appropriate Laboratory Results 10/23/17 01:17: Magnesium 1.8, TSH 9.40 H 10/23/17 11:40: Vitamin D 25-Hydroxy 30.4 10/24/17 05:45: Sodium 146 H, Potassium 3.3 L, Chloride 112 H, Carbon Dioxide 26.0, Anion Gap 8, BUN 35 H, Creatinine 1.27 H, Estim Creat Clear Calc 31.20, Est GFR (MDRD) Af Amer 53 L, Est GFR (MDRD) Non-Af 44 L, BUN/Creatinine Ratio 27.6 H, Glucose 89, Calcium 12.3 H Current Medications Al Hydroxide/Mg Hydroxide (Mylanta Ii) 30 ml PO Q6H PRN PRN PRN Reason: Gastric burning Atorvastatin Calcium (Lipitor) 80 mg PO DAILY [facility] Last Admin: 10/23/17 09:13 Dose: Not Given Brimonidine Tartrate (Alphagan P 0.15%) 1 drop EACH EYE DAILY [facility] Last Admin: 10/23/17 09:19 Dose: Not Given Clopidogrel Bisulfate (Plavix) 75 mg PO DAILY [facility] Last Admin: 10/23/17 09:11 Dose: 75 mg Famotidine (Pepcid) 20 mg PO BID [facility] Last Admin: 10/23/17 22:34 Dose: 20 mg Heparin Sodium (Porcine) (Heparin Na) 5,000 unit SC BID [facility] Last Admin: 10/23/17 22:38 Dose: 5,000 u Sodium Chloride () 1,000 mls @ 150 mls/hr IV .Q6H40M [facility] Last Admin: 10/24/17 02:14 Dose: 150 mls/hr Magnesium Hydroxide (Milk Of Magnesia) 30 ml PO DAILY PRN PRN Reason: Constipation Magnesium Oxide (Mag-Ox 400) 400 mg PO BID [facility] Last Admin: 10/23/17 22:33 Dose: 400 mg Multivitamins/Minerals (Multivitamin With Minerals) 1 tablet PO DAILY@0800 [facility] Last Admin: 10/23/17 09:10 Dose: 1 tablet Nutritional Formula (Lactose Free) (Ensure Enlive) 120 ml PO 4X/DAY [facility] Last Admin: 10/23/17 22:33 Dose: Not Given Ondansetron HCl (Zofran) 4 mg IV Q8H PRN PRN PRN Reason: NAUSEA Potassium Chloride (K-Dur) 20 meq PO DAILY [facility] Last Admin: 10/23/17 09:10 Dose: 20 meq Promethazine HCl (Phenergan (Ll)) 12.5 mg IV Q6H PRN PRN PRN Reason: NAUSEA/VOMITING Sodium Chloride () 5 - 30 ml IV UD PRN PRN Reason: SALINE FLUSH Assessment/Plan 72 y/o F with PMHx of Hodgkins Lymphoma, undergoing chemo and radiation following with Dr. Petit, History of Prior CVA admitted to [facility] from [facility] ED on 10/23/17 with history of ~ 1 week history of gait disturbance as well as irregular speech w/ garbled speech and difficulty expressing herself in addition to recent increased blurry vision. 1. Gait impairment, MRI brain shows cerebellar and left temporal chronic infarcts, 2. Hypercalcemia, Ca 13.1, pt is on MD, will start vitamin D, check vitamin D levels, hydrate patient recheck in a.m. 3. Acute kidney injury, likely related to dehydration, will continue on IVF and repeat blood work in am 4. Hodgkins Lymphoma Mixed Cellularity, following Dr. Petit 5. Hypertension, slightly uncontrolled, BP has been fluctuating, will monitor and treat if still high 6, DVT Prophylaxis: SCDs, heparin.
--- NOTE | 2017-10-24 07:20 | CASEMGMT ---
HAMZAH received a voice mail from Brielle and she will start the process for insurance authorization. HAMZAH will talk with family today to update them. Plan: [facility] 4th floor rehab unit pending insurance approval. Kristin RIDLEY
--- NOTE | 2017-10-24 07:23 | PN_ITS ---
Subjective: Late entry note: Patient was seen and examined. No new complains. Still has gait imbalance. Vitals/I&O's: Vital Signs Temp Pulse Resp BP Pulse Ox 98.4 F 62 18 143/70 H 96 10/24/17 06:20 10/24/17 06:20 10/24/17 06:20 10/24/17 06:20 10/24/17 06:20 Oxygen Delivery Method Room Air Weight: 64.4 kg Body Mass Index (BMI) 25.9 Intake and Output for Last 24 Hours 10/22/17 10/23/17 10/24/17 23:59 23:59 23:59 Intake Total 3557 / 7 972 / 972 Balance 3557 / 3556 972 / 972 General: Alert, Oriented x3, Cooperative, No apparent distress HEENT: Atraumatic, PERRLA, EOMI, Normocephalic Oral: Moist Mucosa Neck: Supple Lungs: Clear to auscultation, Normal air movement Cardiovascular: Regular rate, Regular Rhythm, Normal S1, Normal S2, No murmurs Abdomen: Bowel Sounds Present, Soft, Non Tender, Non-Distended, No Hepato- splenomegaly Extremities: No edema Skin: No rashes, No breakdown Musculoskeletal: No Tenderness to Palpation of Joints or Extremities Lymphatic: No Cervical, Supraclavicular, or Inguinal Adenopathy Neurological: Cranial nerves II-XII grossly intact Psych/Mental Status: Normal Affect, Appropriate Laboratory Results 10/23/17 01:17: Magnesium 1.8, TSH 9.40 H 10/23/17 11:40: Vitamin D 25-Hydroxy 30.4 10/24/17 05:45: Sodium 146 H, Potassium 3.3 L, Chloride 112 H, Carbon Dioxide 26.0, Anion Gap 8, BUN 35 H, Creatinine 1.27 H, Estim Creat Clear Calc 31.20, Est GFR (MDRD) Af Amer 53 L, Est GFR (MDRD) Non-Af 44 L, BUN/Creatinine Ratio 27.6 H, Glucose 89, Calcium 12.3 H Current Medications Al Hydroxide/Mg Hydroxide (Mylanta Ii) 30 ml PO Q6H PRN PRN PRN Reason: Gastric burning Atorvastatin Calcium (Lipitor) 80 mg PO DAILY [facility] Last Admin: 10/23/17 09:13 Dose: Not Given Brimonidine Tartrate (Alphagan P 0.15%) 1 drop EACH EYE DAILY [facility] Last Admin: 10/23/17 09:19 Dose: Not Given Clopidogrel Bisulfate (Plavix) 75 mg PO DAILY [facility] Last Admin: 10/23/17 09:11 Dose: 75 mg Famotidine (Pepcid) 20 mg PO BID [facility] Last Admin: 10/23/17 22:34 Dose: 20 mg Heparin Sodium (Porcine) (Heparin Na) 5,000 unit SC BID [facility] Last Admin: 10/23/17 22:38 Dose: 5,000 u Sodium Chloride () 1,000 mls @ 150 mls/hr IV .Q6H40M [facility] Last Admin: 10/24/17 02:14 Dose: 150 mls/hr Magnesium Hydroxide (Milk Of Magnesia) 30 ml PO DAILY PRN PRN Reason: Constipation Magnesium Oxide (Mag-Ox 400) 400 mg PO BID [facility] Last Admin: 10/23/17 22:33 Dose: 400 mg Multivitamins/Minerals (Multivitamin With Minerals) 1 tablet PO DAILY@0800 [facility] Last Admin: 10/23/17 09:10 Dose: 1 tablet Nutritional Formula (Lactose Free) (Ensure Enlive) 120 ml PO 4X/DAY [facility] Last Admin: 10/23/17 22:33 Dose: Not Given Ondansetron HCl (Zofran) 4 mg IV Q8H PRN PRN PRN Reason: NAUSEA Potassium Chloride (K-Dur) 20 meq PO DAILY [facility] Last Admin: 10/23/17 09:10 Dose: 20 meq Promethazine HCl (Phenergan (Ll)) 12.5 mg IV Q6H PRN PRN PRN Reason: NAUSEA/VOMITING Sodium Chloride () 5 - 30 ml IV UD PRN PRN Reason: SALINE FLUSH Assessment/Plan 72 y/o F with PMHx of Hodgkins Lymphoma, undergoing chemo and radiation following with Dr. Petit, History of Prior CVA admitted to [facility] from [facility] ED on 10/23/17 with history of ~ 1 week history of gait disturbance as well as irregular speech w/ garbled speech and difficulty expressing herself in addition to recent increased blurry vision. 1. Gait impairment, MRI brain shows cerebellar and left temporal chronic infarcts, 2. Hypercalcemia, Ca 13.1, pt is on MD, will start vitamin D, check vitamin D levels, hydrate patient recheck in a.m. 3. Acute kidney injury, likely related to dehydration, will continue on IVF and repeat blood work in am 4. Hodgkins Lymphoma Mixed Cellularity, following Dr. Petit 5. Hypertension, slightly uncontrolled, BP has been fluctuating, will monitor and treat if still high 6, DVT Prophylaxis: SCDs, heparin.
--- NOTE | 2017-10-24 08:22 | PCM.PN.HOSP ---
Subjective: Patient seen and examined. No acute events on telemetry. Patient still has gait instability. Discussed management in depth with her daughter who had coming from [place]. She preferred her mom being discharged to a facility eitherin [place] or closer to her to daughters in [place]. Care managers working on SNF placement pending accepting facility and insurance approval. Objective: PHYSICAL EXAM: General: Alert, Oriented x3, Cooperative, No apparent distress HEENT: Atraumatic, PERRLA, EOMI, Normocephalic Oral: Moist Mucosa Neck: Supple Lungs: Clear to auscultation, Normal air movement Cardiovascular: Regular rate, Regular Rhythm, Normal S1, Normal S2, No murmurs Abdomen: Bowel Sounds Present, Soft, Non Tender, Non-Distended, No Hepato-splenomegaly Extremities: No edema Skin: No rashes, No breakdown Musculoskeletal: No Tenderness to Palpation of Joints or Extremities Lymphatic: No Cervical, Supraclavicular, or Inguinal Adenopathy Neurological: Cranial nerves II-XII grossly intact, slurred speech, finger to nose test bilaterally intact, although slow. Psych/Mental Status: Normal Affect, Appropriate Vitals/I&O's: Vital Signs Temp Pulse Resp BP Pulse Ox 98.4 F 65 18 143/70 H 98 10/24/17 06:20 10/24/17 07:20 10/24/17 06:20 10/24/17 06:20 10/24/17 07:14 Oxygen Delivery Method Room Air Weight: 64.4 kg Body Mass Index (BMI) 25.9 Intake and Output for Last 24 Hours 10/22/17 10/23/17 10/24/17 23:59 23:59 23:59 Intake Total 3557 / 3557 972 / 972 Balance 3557 / 3557 972 / 972 Laboratory Results 10/23/17 01:17: Magnesium 1.8, TSH 9.40 H 10/23/17 11:40: Vitamin D 25-Hydroxy 30.4 10/24/17 05:45: Sodium 146 H, Potassium 3.3 L, Chloride 112 H, Carbon Dioxide 26.0, Anion Gap 8, BUN 35 H, Creatinine 1.27 H, Estim Creat Clear Calc 31.20, Est GFR (MDRD) Af Amer 53 L, Est GFR (MDRD) Non-Af 44 L, BUN/Creatinine Ratio 27.6 H, Glucose 89, Calcium 12.3 H Current Medications Al Hydroxide/Mg Hydroxide (Mylanta Ii) 30 ml PO Q6H PRN PRN PRN Reason: Gastric burning Amlodipine Besylate (Norvasc) 2.5 mg PO DAILY [facility] Atorvastatin Calcium (Lipitor) 80 mg PO DAILY [facility] Last Admin: 10/23/17 09:13 Dose: Not Given Brimonidine Tartrate (Alphagan P 0.15%) 1 drop EACH EYE DAILY [facility] Last Admin: 10/23/17 09:19 Dose: Not Given Clopidogrel Bisulfate (Plavix) 75 mg PO DAILY [facility] Last Admin: 10/23/17 09:11 Dose: 75 mg Famotidine (Pepcid) 20 mg PO BID [facility] Last Admin: 10/23/17 22:34 Dose: 20 mg Heparin Sodium (Porcine) (Heparin Na) 5,000 unit SC BID [facility] Last Admin: 10/23/17 22:38 Dose: 5,000 u Sodium Chloride () 1,000 mls @ 150 mls/hr IV .Q6H40M [facility] Last Admin: 10/24/17 02:14 Dose: 150 mls/hr Magnesium Hydroxide (Milk Of Magnesia) 30 ml PO DAILY PRN PRN Reason: Constipation Magnesium Oxide (Mag-Ox 400) 400 mg PO BID [facility] Last Admin: 10/23/17 22:33 Dose: 400 mg Multivitamins/Minerals (Multivitamin With Minerals) 1 tablet PO DAILY@0800 [facility] Last Admin: 10/23/17 09:10 Dose: 1 tablet Nutritional Formula (Lactose Free) (Ensure Enlive) 120 ml PO 4X/DAY [facility] Last Admin: 10/23/17 22:33 Dose: Not Given Ondansetron HCl (Zofran) 4 mg IV Q8H PRN PRN PRN Reason: NAUSEA Potassium Chloride (K-Dur) 20 meq PO DAILY [facility] Last Admin: 10/23/17 09:10 Dose: 20 meq Promethazine HCl (Phenergan (Ll)) 12.5 mg IV Q6H PRN PRN PRN Reason: NAUSEA/VOMITING Sodium Chloride () 5 - 30 ml IV UD PRN PRN Reason: SALINE FLUSH Assessment/Plan 72 y/o F with PMHx of Hodgkins Lymphoma, undergoing chemo and radiation following with Dr. Petit, History of Prior CVA admitted to [facility] from [facility] ED on 10/23/17 with history of ~ 1 week history of gait disturbance as well as irregular speech w/ garbled speech and difficulty expressing herself in addition to recent increased blurry vision. 1. Gait impairment, MRI brain shows acute cerebellar and left temporal chronic infarcts, on plavix, statin. Lipid profile is not controlled, on high dose statin, 2d-ECHO is normal, telemetry shows no acute vents; NSR. 2. Hypercalcemia, Ca 12.3, likely related to malignancy, off vitamin d, receiving IVF, will need to discuss with oncology about starting bisphosphonates. 3. Acute kidney injury, likely related to dehydration, improved, cr is 1.27, will continue to hydrate patient 4. Hypokalemia, K 3.3, will replace, recheck in am 5. Elevated TSH, free t4/Ft3 normal, likely subclinical, will need to be repeated in outpatient in 4-6 weeks. 6. Hodgkins Lymphoma Mixed Cellularity, following Dr. Petit 7. Hypertension, uncontrolled, will resume home triamterene/HCTZ 6, DVT Prophylaxis: SCDs, heparin. Code Visit Inpatient E&M: 92700 Subs Hosp L2
[2017-10-24] MEDS: Multivitamins,Ther W-Minerals Tablet 1 TABLET PO (08:27)
[2017-10-24] MEDS: Famotidine 20 MG Tablet PO ×2 (08:28→22:16)
[2017-10-24] MEDS: Magnesium Oxide 400 MG Tablet PO ×2 (08:28→22:16)
[2017-10-24] MEDS: Clopidogrel Bisulfate 75 MG Tablet PO (08:28)
--- NOTE | 2017-10-24 08:41 | PN_ITS ---
Subjective: Patient seen and examined. No acute events on telemetry. Patient still has gait instability. Discussed management in depth with her daughter who had coming from [place]. She preferred her mom being discharged to a facility eitherin [place] or closer to her to daughters in [place]. Care managers working on SNF placement pending accepting facility and insurance approval. Objective: PHYSICAL EXAM: General: Alert, Oriented x3, Cooperative, No apparent distress HEENT: Atraumatic, PERRLA, EOMI, Normocephalic Oral: Moist Mucosa Neck: Supple Lungs: Clear to auscultation, Normal air movement Cardiovascular: Regular rate, Regular Rhythm, Normal S1, Normal S2, No murmurs Abdomen: Bowel Sounds Present, Soft, Non Tender, Non-Distended, No Hepato- splenomegaly Extremities: No edema Skin: No rashes, No breakdown Musculoskeletal: No Tenderness to Palpation of Joints or Extremities Lymphatic: No Cervical, Supraclavicular, or Inguinal Adenopathy Neurological: Cranial nerves II-XII grossly intact, slurred speech, finger to nose test bilaterally intact, although slow. Psych/Mental Status: Normal Affect, Appropriate Vitals/I&O's: Vital Signs Temp Pulse Resp BP Pulse Ox 98.4 F 65 18 143/70 H 98 10/24/17 06:20 10/24/17 07:20 10/24/17 06:20 10/24/17 06:20 10/24/17 07:14 Oxygen Delivery Method Room Air Weight: 64.4 kg Body Mass Index (BMI) 25.9 Intake and Output for Last 24 Hours 10/22/17 10/23/17 10/24/17 23:59 23:59 23:59 Intake Total 3557 / 3557 972 / 972 Balance 3557 / 3557 972 / 972 Laboratory Results 10/23/17 01:17: Magnesium 1.8, TSH 9.40 H 10/23/17 11:40: Vitamin D 25-Hydroxy 30.4 10/24/17 05:45: Sodium 146 H, Potassium 3.3 L, Chloride 112 H, Carbon Dioxide 26.0, Anion Gap 8, BUN 35 H, Creatinine 1.27 H, Estim Creat Clear Calc 31.20, Est GFR (MDRD) Af Amer 53 L, Est GFR (MDRD) Non-Af 44 L, BUN/Creatinine Ratio 27.6 H, Glucose 89, Calcium 12.3 H Current Medications Al Hydroxide/Mg Hydroxide (Mylanta Ii) 30 ml PO Q6H PRN PRN PRN Reason: Gastric burning Amlodipine Besylate (Norvasc) 2.5 mg PO DAILY [facility] Atorvastatin Calcium (Lipitor) 80 mg PO DAILY [facility] Last Admin: 10/23/17 09:13 Dose: Not Given Brimonidine Tartrate (Alphagan P 0.15%) 1 drop EACH EYE DAILY [facility] Last Admin: 10/23/17 09:19 Dose: Not Given Clopidogrel Bisulfate (Plavix) 75 mg PO DAILY [facility] Last Admin: 10/23/17 09:11 Dose: 75 mg Famotidine (Pepcid) 20 mg PO BID [facility] Last Admin: 10/23/17 22:34 Dose: 20 mg Heparin Sodium (Porcine) (Heparin Na) 5,000 unit SC BID [facility] Last Admin: 10/23/17 22:38 Dose: 5,000 u Sodium Chloride () 1,000 mls @ 150 mls/hr IV .Q6H40M [facility] Last Admin: 10/24/17 02:14 Dose: 150 mls/hr Magnesium Hydroxide (Milk Of Magnesia) 30 ml PO DAILY PRN PRN Reason: Constipation Magnesium Oxide (Mag-Ox 400) 400 mg PO BID [facility] Last Admin: 10/23/17 22:33 Dose: 400 mg Multivitamins/Minerals (Multivitamin With Minerals) 1 tablet PO DAILY@0800 [facility] Last Admin: 10/23/17 09:10 Dose: 1 tablet Nutritional Formula (Lactose Free) (Ensure Enlive) 120 ml PO 4X/DAY [facility] Last Admin: 10/23/17 22:33 Dose: Not Given Ondansetron HCl (Zofran) 4 mg IV Q8H PRN PRN PRN Reason: NAUSEA Potassium Chloride (K-Dur) 20 meq PO DAILY [facility] Last Admin: 10/23/17 09:10 Dose: 20 meq Promethazine HCl (Phenergan (Ll)) 12.5 mg IV Q6H PRN PRN PRN Reason: NAUSEA/VOMITING Sodium Chloride () 5 - 30 ml IV UD PRN PRN Reason: SALINE FLUSH Assessment/Plan 72 y/o F with PMHx of Hodgkins Lymphoma, undergoing chemo and radiation following with Dr. Petit, History of Prior CVA admitted to [facility] from [facility] ED on 10/23/17 with history of ~ 1 week history of gait disturbance as well as irregular speech w/ garbled speech and difficulty expressing herself in addition to recent increased blurry vision. 1. Gait impairment, MRI brain shows acute cerebellar and left temporal chronic infarcts, on plavix, statin. Lipid profile is not controlled, on high dose statin, 2d-ECHO is normal, telemetry shows no acute vents; NSR. 2. Hypercalcemia, Ca 12.3, likely related to malignancy, off vitamin d, receiving IVF, will need to discuss with oncology about starting bisphosphonates. 3. Acute kidney injury, likely related to dehydration, improved, cr is 1.27, will continue to hydrate patient 4. Hypokalemia, K 3.3, will replace, recheck in am 5. Elevated TSH, free t4/Ft3 normal, likely subclinical, will need to be repeated in outpatient in 4-6 weeks. 6. Hodgkins Lymphoma Mixed Cellularity, following Dr. Petit 7. Hypertension, uncontrolled, will resume home triamterene/HCTZ 6, DVT Prophylaxis: SCDs, heparin. Code Visit Inpatient E&M: 09453 Subs Hosp L2
[2017-10-24] MEDS: Triamterene 37.5MG/Hctz 25MG Capsule 1 CAP PO (08:54)
[2017-10-24 08:58] LABS: Free T3 2.2 pg/mL (2.18-3.98); T4 Free Direct 1.08 ng/dL (0.76-1.46)
--- NOTE | 2017-10-24 10:47 | CASEMGMT ---
Patient's daughter, Luz is here and would like to talk with SW regarding d/c planning. SW spoke with her and she said they would prefer patient go to a facility in [place] as that is where most of her family is located. Also, patient's daughters live in [place] and [place] is closer than [place]. They asked SW to make a referral to [facility] and if not [facility] then [facility]. SW told them SW will work on this and get back to them. HAMZAH called Brielle in rehab and left a message for her asking her to cancel the pre-cert request for rehab as patient and family have changed their mind and would like SNF. HAMZAH then called Maria Antonia at [facility] and left a message with referral and HAMZAH also faxed over referral. Await response from [facility]. Plan: SNF pending accepting facility and insurance approval. Kristin RIDLEY
--- NOTE | 2017-10-24 10:48 | PCM.PN.NEU ---
Subjective: no new complaints, wants to go to [facility] for rehab. dtr present - Physical Exam General: Alert, Oriented x3 Neurological: Slurred Speech Vital Signs Temp Pulse Resp BP Pulse Ox 36.4 C L 62 18 140/68 H 97 10/24/17 09:00 10/24/17 09:00 10/24/17 09:00 10/24/17 09:00 10/24/17 09:00 Oxygen Delivery Method Room Air Weight: 64.4 kg Body Mass Index (BMI) 25.9 Intake and Output for Last 24 Hours 10/22/17 10/23/17 10/24/17 23:59 23:59 23:59 Intake Total 3557 / 3557 972 / 972 Balance 3557 / 3557 972 / 972 Laboratory Tests Past 24 Hrs 10/23/17 10/23/17 10/24/17 01:17 11:40 05:45 Sodium 146 H Potassium 3.3 L Chloride 112 H Carbon Dioxide 26.0 Anion Gap 8 BUN 35 H Creatinine 1.27 H Estim Creat Clear Calc 31.20 Est GFR (MDRD) Af Amer 53 L Est GFR (MDRD) Non-Af 44 L BUN/Creatinine Ratio 27.6 H Glucose 89 Calcium 12.3 H Magnesium 1.8 Vitamin D 25-Hydroxy 30.4 TSH 9.40 H Free T4 Free T3 pg/dL 10/24/17 05:45 Sodium Potassium Chloride Carbon Dioxide Anion Gap BUN Creatinine Estim Creat Clear Calc Est GFR (MDRD) Af Amer Est GFR (MDRD) Non-Af BUN/Creatinine Ratio Glucose Calcium Magnesium Vitamin D 25-Hydroxy TSH Free T4 1.08 Free T3 pg/dL 2.2 Assessment/Plan bilateral posterior circulation infarcts, acute, plavix statin bp control pt/ot/sp consider rehab echo: normal tele
--- NOTE | 2017-10-24 11:58 | CASEMGMT ---
HAMZAH received a call from Maria Antonia at [facility] and she said they are out of network, but will find out her benefits because sometimes they are the same. She then asked HAMZAH for patient's Medicare number. HAMZAH told her SW does not have this. HAMZAH spoke with patient and family and they do not have this either. HAMZAH will try a few more options and will let Maria Antonia know. Kristin RIDLEY
--- NOTE | 2017-10-24 13:04 | CHAPLAIN ---
Type of Pastoral Visit _x__ Initial Visit ___ Follow-up Visit ___ On-call Visit ___ General Patient Visit ___ Spiritual Assessment ___ Family Conference ___ Bereavement ___ Rapid Response ___ Code Blue ___ Other (describe below) Pastoral Care Referral From _x__ Patient ___ Family ___ Nurse ___ Physician ___ Aircraft Engine Dismantler ___ Rf Engineer ___ Other (describe below) Sacrament/Intervention _x__ Active listening ___ Anointing ___ Scientologist ___ Bereavement ___ Communion _x__ Tegan exploration ___ ___ Life review _x__ Prayer ___ Reconciliation ___ Sacrament of Sick ___ Supportive presence ___ Wedding ___ Other (describe below) Pastoral Comments patient describes her history and illness; pt said her goal is to get some answers and then go for therapy; pt has some decisions that eventually need made in living arrangements and moravian attendance (need for new moravian may arise); pt has family members in room and says her family is supportive and that her [facility] (the place where she goes for help and looks forward to being in heaven with loved ones some day); pt is
--- NOTE | 2017-10-24 13:54 | CASEMGMT ---
SW received a call from [facility] and they are out of network and her out of network benefits are not the same as her in network. She has a $500 deductible and $1395 max out of pocket. Until those are met she would be responsible for 30%. HAMZAH told her SW will talk with patient and family. HAMZAH then called [facility] and they would have a semi-private room. HAMZAH faxed the referral. HAMZAH also called [facility] to check on bed availability and left a message. HAMZAH then went into room and explained everything to patient and her daughters. They are okay with a semi-private room and they still would like HAMZAH to check with [facility]. Plan: SNF pending accepting facility and insurance approval. Kristin RIDLEY
--- NOTE | 2017-10-24 15:22 | CASEMGMT ---
Addendum entered by Kristin Delong 10/24/17 15:41: SW received a call from Jacklyn at [facility]. They can take patient as long as she is not going to be getting chemo or radiation while there. HAMZAH told her SW will check with Dr Petit's office, but asked that she start the pre-cert. SW will let patient and family know tomorrow. HAMZAH will also follow up with Dr Petit's office tomorrow. Kristin RIDLEY Original Note: HAMZAH called [facility] and left a message for Jacklyn. HAMZAH still has not heard from admissions at [facility]. Kristin RIDLEY
[2017-10-25] VITALS (12 sets, daily range): BP systolic 121–159; BP diastolic 60–70; PULSE 52–65; RESP 12–18; TEMP 36.6–36.9; O2SAT 92–98; BMI 25.9
[2017-10-25] MEDS: 0.9% Normal Saline 1,000 ML 150 ML IV ×2 (05:06→12:04)
[2017-10-25 06:19] LABS: Anion Gap 8 (5-15); BUN 34 mg/dL (7-18); BUN/Creat Ratio 25.8 RATIO (10-20); Calcium,Total 12.2 mg/dL (8.5-10.1); Chloride 113 mmol/L (98-107); Creatinine, Serum 1.32 mg/dL (0.55-1.02); EST Glomerular Filtration Rate 42 mL/min (>60); Est Glom Filt Rate - Afr Amer 51 mL/min (>60); Estimated Creatinine Clearance 30.02 ml/min; Glucose 94 mg/dL (70-110); Potassium 3.7 mmol/L (3.5-5.1); Sodium Level 146 mmol/L (136-145)
[2017-10-25] MEDS: Multivitamins,Ther W-Minerals Tablet 1 TABLET PO (08:52)
[2017-10-25] MEDS: BRIMONIDINE 0.15% 5 ML Bottle 1 DRP EACH EYE (08:53)
[2017-10-25] MEDS: Famotidine 20 MG Tablet PO ×2 (08:54→21:42)
[2017-10-25] MEDS: Atorvastatin Calcium 80 MG Tablet PO (08:54)
[2017-10-25] MEDS: Magnesium Oxide 400 MG Tablet PO ×2 (08:54→21:42)
[2017-10-25] MEDS: Triamterene 37.5MG/Hctz 25MG Capsule 1 CAP PO (08:54)
[2017-10-25] MEDS: Clopidogrel Bisulfate 75 MG Tablet PO (08:54)
[2017-10-25] MEDS: Dorzolamide 2% 10ml Bottle 1 DRP EACH EYE ×2 (08:59→21:44)
--- NOTE | 2017-10-25 11:59 | CASEMGMT ---
Addendum entered by Kristin Delong 10/25/17 14:00: SW received a call from [facility] and she said they only have a bed in their dementia unit with a patient that is severely demented so would not be a good fit. HAMZAH called Cecilia back and let her know. She is okay with [facility]. HAMZAH told her hopefully we will get an answer today. SW also let patient know above. Plan: d/c to [facility] pending insurance approval. Kristin [employer] Original Note: HAMZAH spoke with Roz ARREOLA from Dr Petit's office. He said patient does not have any scheduled chemo or radiation. Her next appt is Nov 07 for a lab draw and office visit. HAMZAH called [facility] and left a message for Rhina as she is covering for Jacklyn today. HAMZAH then called patient's daughter, Cecilia back and she asked what [facility] said. HAMZAH told her SW has still not heard from them, but can call again. She said she would prefer this as if they do have a bed she would prefer them over [facility]. HAMZAH told her will try to get a hold of them and let her know. HAMZAH called [facility] again and left a message again for Melody, the director of reimbursement. Await her response. Kristin [employer]
--- NOTE | 2017-10-25 16:42 | CASEMGMT ---
HAMZAH received insurance approval for [facility]. HAMZAH notified physician who will send patient tomorrow. HAMZAH let [facility] know this information. HAMZAH let patient know as well. HAMZAH called both of patient's daughters and left them voice mails. HAMZAH also told them patient would have to go by [facility] and this is not covered by insurance. HAMZAH then received a call from Luz, patient's other daughter. She said she would try and work something out with family for them to transport her via car. Green sheet on chart. Plan: [facility] under skilled level of care. Convalescent completed on . Family may transport patient. Staff will have to call Luz to find out. Kristin RIDLEY
[2017-10-25] MEDS: 0.45% Normal Saline 1,000 ML 200 ML IV ×2 (17:13→23:42)
[2017-10-25 18:20] LABS: PTHIN 8.5 pg/mL (18.4-80.1)
--- NOTE | 2017-10-25 18:44 | PCM.PN.HOSP ---
Subjective: Seen and examined. Denies any new complaints. No acute events overnight, still has gait impairment Objective: PHYSICAL EXAM: General: Alert, Oriented x3, Cooperative, No apparent distress HEENT: Atraumatic, PERRLA, EOMI, Normocephalic Oral: Moist Mucosa Neck: Supple Lungs: Clear to auscultation, Normal air movement Cardiovascular: Regular rate, Regular Rhythm, Normal S1, Normal S2, No murmurs Abdomen: Bowel Sounds Present, Soft, Non Tender, Non-Distended, No Hepato-splenomegaly Extremities: No edema Skin: No rashes, No breakdown Musculoskeletal: No Tenderness to Palpation of Joints or Extremities Lymphatic: No Cervical, Supraclavicular, or Inguinal Adenopathy Neurological: Cranial nerves II-XII grossly intact, slurred speech, finger to nose test bilaterally intact, although slow. Psych/Mental Status: Normal Affect, Appropriate Vitals/I&O's: Vital Signs Temp Pulse Resp BP Pulse Ox 98.3 F 56 L 12 121/69 H 98 10/25/17 14:30 10/25/17 15:00 10/25/17 14:30 10/25/17 14:30 10/25/17 14:30 Oxygen Delivery Method Room Air Weight: 64.4 kg Body Mass Index (BMI) 25.9 Intake and Output for Last 24 Hours 10/23/17 10/24/17 10/25/17 23:59 23:59 23:59 Intake Total 3557 / 3557 3995 / 3995 2450 / 2450 Balance 3557 / 3557 3995 / 3995 2450 / 2450 Laboratory Results 10/25/17 05:30: Sodium 146 H, Potassium 3.7, Chloride 113 H, Carbon Dioxide 25.0, Anion Gap 8, BUN 34 H, Creatinine 1.32 H, Estim Creat Clear Calc 30.02, Est GFR (MDRD) Af Amer 51 L, Est GFR (MDRD) Non-Af 42 L, BUN/Creatinine Ratio 25.8 H, Glucose 94, Calcium 12.2 H 10/25/17 05:30: PTH Intact 8.5 L Current Medications Al Hydroxide/Mg Hydroxide (Mylanta Ii) 30 ml PO Q6H PRN PRN PRN Reason: Gastric burning Atorvastatin Calcium (Lipitor) 80 mg PO DAILY [facility] Last Admin: 10/25/17 08:54 Dose: 80 mg Brimonidine Tartrate (Alphagan P 0.15%) 1 drop EACH EYE DAILY [facility] Last Admin: 10/25/17 08:53 Dose: 1 drop Clopidogrel Bisulfate (Plavix) 75 mg PO DAILY [facility] Last Admin: 10/25/17 08:54 Dose: 75 mg Dorzolamide HCl (Trusopt) 1 drop EACH EYE BID [facility] Last Admin: 10/25/17 08:59 Dose: 1 drop Famotidine (Pepcid) 20 mg PO BID [facility] Last Admin: 10/25/17 08:54 Dose: 20 mg Heparin Sodium (Porcine) (Heparin Na) 5,000 unit SC BID [facility] Last Admin: 10/25/17 08:58 Dose: 5,000 u Hydralazine HCl (Apresoline) 2.5 mg IV Q6H PRN PRN PRN Reason: BLOOD PRESSURE Sodium Chloride () 1,000 mls @ 200 mls/hr IV .Q5H [facility] Last Admin: 10/25/17 17:13 Dose: 200 mls/hr Magnesium Hydroxide (Milk Of Magnesia) 30 ml PO DAILY PRN PRN Reason: Constipation Magnesium Oxide (Mag-Ox 400) 400 mg PO BID [facility] Last Admin: 10/25/17 08:54 Dose: 400 mg Multivitamins/Minerals (Multivitamin With Minerals) 1 tablet PO DAILY@0800 [facility] Last Admin: 10/25/17 08:52 Dose: 1 tablet Ondansetron HCl (Zofran) 4 mg IV Q8H PRN PRN PRN Reason: NAUSEA Potassium Chloride (K-Dur) 20 meq PO DAILY [facility] Last Admin: 10/25/17 08:54 Dose: 20 meq Prednisolone Acetate (Pred Forte 5ml) 1 drop EACH EYE DAILY [facility] Last Admin: 10/25/17 08:58 Dose: 1 drop Promethazine HCl (Phenergan (Ll)) 12.5 mg IV Q6H PRN PRN PRN Reason: NAUSEA/VOMITING Sodium Chloride () 5 - 30 ml IV UD PRN PRN Reason: SALINE FLUSH Assessment/Plan 72 y/o F with PMHx of Hodgkins Lymphoma, undergoing chemo and radiation following with Dr. Petit, History of Prior CVA admitted to [facility] from [facility] ED on 10/23/17 with history of ~ 1 week history of gait disturbance as well as irregular speech w/ garbled speech and difficulty expressing herself in addition to recent increased blurry vision. 1. Gait impairment, MRI brain shows acute cerebellar and left temporal chronic infarcts, on plavix, statin. Lipid profile is not controlled, on high dose statin, 2d-ECHO is normal, telemetry shows no acute events - NSR. Patient scheduled for alf facility. Awaiting insurance precertification 2. Hypercalcemia, Ca 12.3, likely related to malignancy, off vitamin d, receiving IVF, calcium still remains high at 12.2, will start patient on IV zoledronic acid as well as continue IV fluids 3. Acute kidney injury, likely related to dehydration, it is slightly elevated likely secondary to start of triamterene/hydrochlorothiazide, will stop medication, and continue IV fluids with monitoring 4. Hypokalemia, resolved, recheck labs in a.m. 5. Elevated TSH, free t4/Ft3 normal, likely subclinical, will need to be repeated in outpatient in 4-6 weeks. 6. Hodgkins Lymphoma Mixed Cellularity, following Dr. Petit 7. Hypertension, uncontrolled, will resume home triamterene/HCTZ 6, DVT Prophylaxis: SCDs, heparin. Code Visit Inpatient E&M: 90507 Subs Hosp L2
[2017-10-26] VITALS (12 sets, daily range): BP systolic 126–159; BP diastolic 64–80; PULSE 51–73; RESP 16–18; TEMP 36.5–36.8; O2SAT 93–97; BMI 25.9
[2017-10-26] MEDS: 0.45% Normal Saline 1,000 ML 200 ML IV ×4 (05:15→22:28)
[2017-10-26 06:27] LABS: Absolute Lymphocyte Count 0.84 X10^3/ul (0.83-4.51); Absolute Neutrophil Count 1.6 X10^3/uL (2.0-7.7); Basophil# 0.01 X10^3/uL; Basophil% 0.3 % (0-1); Eosinophil# 0.16 X10^3/uL; Eosinophils% 4.9 % (0-5); Hematocrit 32.8 % (37-47); Hemoglobin 10.7 g/dl (12.0-15.0); Lymphocyte # 0.84 X10^3/ul (4.0); Lymphocyte % 25.8 % (19-41); Mean Corp Hgb Conc 32.6 g/gl (32-36); Mean Corpuscular Hgb 30.2 pg (27.0-32.0); Mean Corpuscular Volume 92.7 fL (81-99); Monocyte# 0.63 X10^3/uL; Monocyte% 19.4 % (0-10); Neutrophil % 49.3 % (47-70); Platelet Count 83 K/mm3 (150-450); RBC Distribution Width CV 14.7 % (11.6-14.6); RBC Distribution Width SD 50.3 fl (35.1-43.9); Red Blood Count 3.54 M/mm3 (4.2-5.4); White Blood Count 3.3 K/mm3 (4.4-11.0)
[2017-10-26 06:46] LABS: POSITIVE COUNT NO; POSITIVE DIFFERENTIAL NO; POSITIVE MORPHOLOGY NO
[2017-10-26 06:50] LABS: Albumin, Serum 2.6 g/dL (3.4-5.0); BUN 24 mg/dL (7-18); BUN/Creat Ratio 22.2 RATIO (10-20); Calcium,Total 11.4 mg/dL (8.5-10.1); Chloride 108 mmol/L (98-107); Creatinine, Serum 1.08 mg/dL (0.55-1.02); EST Glomerular Filtration Rate 53 mL/min (>60); Est Glom Filt Rate - Afr Amer 64 mL/min (>60); Estimated Creatinine Clearance 36.69 ml/min; Glucose 90 mg/dL (70-110); Phosphorus 2.9 mg/dL (2.5-4.9); Potassium 3.4 mmol/L (3.5-5.1); Sodium Level 140 mmol/L (136-145)
[2017-10-26] MEDS: Dorzolamide 2% 10ml Bottle 1 DRP EACH EYE ×2 (10:02→22:26)
[2017-10-26] MEDS: Magnesium Oxide 400 MG Tablet PO ×2 (10:03→22:28)
[2017-10-26] MEDS: Atorvastatin Calcium 80 MG Tablet PO (10:03)
[2017-10-26] MEDS: Famotidine 20 MG Tablet PO (10:03)
[2017-10-26] MEDS: Clopidogrel Bisulfate 75 MG Tablet PO (10:03)
[2017-10-26] MEDS: Multivitamins,Ther W-Minerals Tablet 1 TABLET PO (10:09)
--- NOTE | 2017-10-26 14:30 | PCM.PN.HOSP ---
Subjective: Patient seen and examined. Wants to be discharged. No new complains. Denies dizziness, headaches or fever Discussed her care with oncologist covering Dr. Petit, Dr. Villafana, agreed with IV zoledronic acid, wants us to keep her until Ca is less than 11, continue with aggressive IVF. Objective: PHYSICAL EXAM: General: Alert, Oriented x3, Cooperative, No apparent distress HEENT: Atraumatic, PERRLA, EOMI, Normocephalic Oral: Moist Mucosa Neck: Supple Lungs: Clear to auscultation, Normal air movement Cardiovascular: Regular rate, Regular Rhythm, Normal S1, Normal S2, No murmurs Abdomen: Bowel Sounds Present, Soft, Non Tender, Non-Distended, No Hepato-splenomegaly Extremities: No edema Skin: No rashes, No breakdown Musculoskeletal: No Tenderness to Palpation of Joints or Extremities Lymphatic: No Cervical, Supraclavicular, or Inguinal Adenopathy Neurological: Cranial nerves II-XII grossly intact, slurred speech, finger to nose test bilaterally intact, although slow. Psych/Mental Status: Normal Affect, Appropriate Vitals/I&O's: Vital Signs Temp Pulse Resp BP Pulse Ox 98.3 F 73 16 126/64 H 94 10/26/17 10:00 10/26/17 11:09 10/26/17 10:00 10/26/17 10:00 10/26/17 10:00 Oxygen Delivery Method Room Air Weight: 64.4 kg Body Mass Index (BMI) 25.9 Intake and Output for Last 24 Hours 10/24/17 10/25/17 10/26/17 23:59 23:59 23:59 Intake Total 3995 / 3995 3417 / 3417 2396 / 2396 Balance 3995 / 3995 3417 / 3417 2396 / 2396 Laboratory Results 10/25/17 05:30: PTH Intact 8.5 L 10/26/17 06:07: WBC 3.3 L, RBC 3.54 L, Hgb 10.7 L, Hct 32.8 L, MCV 92.7, MCH 30.2, MCHC 32.6, RDW 14.7 H, RDW Differential 50.3 H, Plt Count 83 L, MPV 11.0, Immature Gran % (Auto) 0.300, Neut % (Auto) 49.3, Lymph % (Auto) 25.8, [place] % (Auto) 19.4 H, Eos % (Auto) 4.9, Baso % (Auto) 0.3, Absolute Neuts (auto) 1.6 L, Absolute Lymphs (auto) 0.84, Total Counted Not Reportable 10/26/17 06:07: Sodium 140, Potassium 3.4 L, Chloride 108 H, Carbon Dioxide 24.0, BUN 24 H, Creatinine 1.08 H, Estim Creat Clear Calc 36.69, Est GFR (MDRD) Af Amer 64, Est GFR (MDRD) Non-Af 53 L, BUN/Creatinine Ratio 22.2 H, Glucose 90, Calcium 11.4 H, Phosphorus 2.9, Albumin 2.6 L Current Medications Al Hydroxide/Mg Hydroxide (Mylanta Ii) 30 ml PO Q6H PRN PRN PRN Reason: Gastric burning Atorvastatin Calcium (Lipitor) 80 mg PO DAILY [facility] Last Admin: 10/26/17 10:03 Dose: 80 mg Brimonidine Tartrate (Alphagan P 0.15%) 1 drop EACH EYE DAILY [facility] Last Admin: 10/26/17 10:03 Dose: Not Given Clopidogrel Bisulfate (Plavix) 75 mg PO DAILY [facility] Last Admin: 10/26/17 10:03 Dose: 75 mg Dorzolamide HCl (Trusopt) 1 drop EACH EYE BID [facility] Last Admin: 10/26/17 10:02 Dose: 1 drop Famotidine (Pepcid) 20 mg PO BID [facility] Last Admin: 10/26/17 10:03 Dose: 20 mg Heparin Sodium (Porcine) (Heparin Na) 5,000 unit SC BID [facility] Last Admin: 10/26/17 10:03 Dose: 5,000 u Hydralazine HCl (Apresoline) 2.5 mg IV Q6H PRN PRN PRN Reason: BLOOD PRESSURE Sodium Chloride () 1,000 mls @ 200 mls/hr IV .Q5H [facility] Last Admin: 10/26/17 10:43 Dose: 200 mls/hr Magnesium Hydroxide (Milk Of Magnesia) 30 ml PO DAILY PRN PRN Reason: Constipation Magnesium Oxide (Mag-Ox 400) 400 mg PO BID [facility] Last Admin: 10/26/17 10:03 Dose: 400 mg Multivitamins/Minerals (Multivitamin With Minerals) 1 tablet PO DAILY@0800 [facility] Last Admin: 10/26/17 10:09 Dose: 1 tablet Ondansetron HCl (Zofran) 4 mg IV Q8H PRN PRN PRN Reason: NAUSEA Potassium Chloride (K-Dur) 20 meq PO DAILY [facility] Last Admin: 10/26/17 10:03 Dose: 20 meq Prednisolone Acetate (Pred Forte 5ml) 1 drop EACH EYE DAILY [facility] Last Admin: 10/26/17 10:03 Dose: 1 drop Promethazine HCl (Phenergan (Ll)) 12.5 mg IV Q6H PRN PRN PRN Reason: NAUSEA/VOMITING Sodium Chloride () 5 - 30 ml IV UD PRN PRN Reason: SALINE FLUSH Assessment/Plan 72 y/o F with PMHx of Hodgkins Lymphoma, undergoing chemo and radiation following with Dr. Petit, History of Prior CVA admitted to [facility] from [facility] ED on 10/23/17 with history of ~ 1 week history of gait disturbance as well as irregular speech w/ garbled speech and difficulty expressing herself in addition to recent increased blurry vision. 1. Gait impairment, MRI brain shows acute cerebellar and left temporal chronic infarcts, on plavix, statin. Lipid profile is not controlled, on high dose statin, 2d-ECHO is normal, telemetry shows no acute events - NSR. Patient scheduled for residential facility. Awaiting insurance precertification 2. 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 Hypernatremia, related to dehydration, on IVF 1/2 NS 200mls/hr, Na improved to 140 from 146, will continue to monitor. 4. Hypokalemia, K 3.4, replaced, recheck in am. 5. Acute kidney injury, likely related to dehydration,improved, off triamterene/hydrochlorothiazide, continue on IV fluids 4. Hypokalemia, resolved, recheck labs in a.m. 5. Elevated TSH, free t4/Ft3 normal, likely subclinical, will need to be repeated in outpatient in 4-6 weeks. 6. Hodgkins Lymphoma Mixed Cellularity, following Dr. Petit 7. Hypertension, controlled, off Triamterene/HCTZ, monitor vitals closely 6, DVT Prophylaxis: SCDs, heparin. Code Visit Inpatient E&M: 37019 Subs Hosp L2
--- NOTE | 2017-10-26 14:36 | PN_ITS ---
Subjective: Patient seen and examined. Wants to be discharged. No new complains. Denies dizziness, headaches or fever Discussed her care with oncologist covering Dr. Petit, Dr. Villafana, agreed with IV zoledronic acid, wants us to keep her until Ca is less than 11, continue with aggressive IVF. Objective: PHYSICAL EXAM: General: Alert, Oriented x3, Cooperative, No apparent distress HEENT: Atraumatic, PERRLA, EOMI, Normocephalic Oral: Moist Mucosa Neck: Supple Lungs: Clear to auscultation, Normal air movement Cardiovascular: Regular rate, Regular Rhythm, Normal S1, Normal S2, No murmurs Abdomen: Bowel Sounds Present, Soft, Non Tender, Non-Distended, No Hepato- splenomegaly Extremities: No edema Skin: No rashes, No breakdown Musculoskeletal: No Tenderness to Palpation of Joints or Extremities Lymphatic: No Cervical, Supraclavicular, or Inguinal Adenopathy Neurological: Cranial nerves II-XII grossly intact, slurred speech, finger to nose test bilaterally intact, although slow. Psych/Mental Status: Normal Affect, Appropriate Vitals/I&O's: Vital Signs Temp Pulse Resp BP Pulse Ox 98.3 F 73 16 126/64 H 94 10/26/17 10:00 10/26/17 11:09 10/26/17 10:00 10/26/17 10:00 10/26/17 10:00 Oxygen Delivery Method Room Air Weight: 64.4 kg Body Mass Index (BMI) 25.9 Intake and Output for Last 24 Hours 10/24/17 10/25/17 10/26/17 23:59 23:59 23:59 Intake Total 3995 / 3995 3417 / 3417 2396 / 2396 Balance 3995 / 3995 3417 / 3417 2396 / 2396 Laboratory Results 10/25/17 05:30: PTH Intact 8.5 L 10/26/17 06:07: WBC 3.3 L, RBC 3.54 L, Hgb 10.7 L, Hct 32.8 L, MCV 92.7, MCH 30.2, MCHC 32.6, RDW 14.7 H, RDW Differential 50.3 H, Plt Count 83 L, MPV 11.0, Immature Gran % (Auto) 0.300, Neut % (Auto) 49.3, Lymph % (Auto) 25.8, [place] % ( Auto) 19.4 H, Eos % (Auto) 4.9, Baso % (Auto) 0.3, Absolute Neuts (auto) 1.6 L, Absolute Lymphs (auto) 0.84, Total Counted Not Reportable 10/26/17 06:07: Sodium 140, Potassium 3.4 L, Chloride 108 H, Carbon Dioxide 24.0 , BUN 24 H, Creatinine 1.08 H, Estim Creat Clear Calc 36.69, Est GFR (MDRD) Af Amer 64, Est GFR (MDRD) Non-Af 53 L, BUN/Creatinine Ratio 22.2 H, Glucose 90, Calcium 11.4 H, Phosphorus 2.9, Albumin 2.6 L Current Medications Al Hydroxide/Mg Hydroxide (Mylanta Ii) 30 ml PO Q6H PRN PRN PRN Reason: Gastric burning Atorvastatin Calcium (Lipitor) 80 mg PO DAILY [facility] Last Admin: 10/26/17 10:03 Dose: 80 mg Brimonidine Tartrate (Alphagan P 0.15%) 1 drop EACH EYE DAILY [facility] Last Admin: 10/26/17 10:03 Dose: Not Given Clopidogrel Bisulfate (Plavix) 75 mg PO DAILY [facility] Last Admin: 10/26/17 10:03 Dose: 75 mg Dorzolamide HCl (Trusopt) 1 drop EACH EYE BID [facility] Last Admin: 10/26/17 10:02 Dose: 1 drop Famotidine (Pepcid) 20 mg PO BID [facility] Last Admin: 10/26/17 10:03 Dose: 20 mg Heparin Sodium (Porcine) (Heparin Na) 5,000 unit SC BID [facility] Last Admin: 10/26/17 10:03 Dose: 5,000 u Hydralazine HCl (Apresoline) 2.5 mg IV Q6H PRN PRN PRN Reason: BLOOD PRESSURE Sodium Chloride () 1,000 mls @ 200 mls/hr IV .Q5H [facility] Last Admin: 10/26/17 10:43 Dose: 200 mls/hr Magnesium Hydroxide (Milk Of Magnesia) 30 ml PO DAILY PRN PRN Reason: Constipation Magnesium Oxide (Mag-Ox 400) 400 mg PO BID [facility] Last Admin: 10/26/17 10:03 Dose: 400 mg Multivitamins/Minerals (Multivitamin With Minerals) 1 tablet PO DAILY@0800 [facility] Last Admin: 10/26/17 10:09 Dose: 1 tablet Ondansetron HCl (Zofran) 4 mg IV Q8H PRN PRN PRN Reason: NAUSEA Potassium Chloride (K-Dur) 20 meq PO DAILY [facility] Last Admin: 10/26/17 10:03 Dose: 20 meq Prednisolone Acetate (Pred Forte 5ml) 1 drop EACH EYE DAILY [facility] Last Admin: 10/26/17 10:03 Dose: 1 drop Promethazine HCl (Phenergan (Ll)) 12.5 mg IV Q6H PRN PRN PRN Reason: NAUSEA/VOMITING Sodium Chloride () 5 - 30 ml IV UD PRN PRN Reason: SALINE FLUSH Assessment/Plan 72 y/o F with PMHx of Hodgkins Lymphoma, undergoing chemo and radiation following with Dr. Petit, History of Prior CVA admitted to [facility] from [facility] ED on 10/23/17 with history of ~ 1 week history of gait disturbance as well as irregular speech w/ garbled speech and difficulty expressing herself in addition to recent increased blurry vision. 1. Gait impairment, MRI brain shows acute cerebellar and left temporal chronic infarcts, on plavix, statin. Lipid profile is not controlled, on high dose statin, 2d-ECHO is normal, telemetry shows no acute events - NSR. Patient scheduled [facility]. Awaiting insurance precertification 2. 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 Hypernatremia, related to dehydration, on IVF 1/2 NS 200mls/hr, Na improved to 140 from 146, will continue to monitor. 4. Hypokalemia, K 3.4, replaced, recheck in am. 5. Acute kidney injury, likely related to dehydration,improved, off triamterene/ hydrochlorothiazide, continue on IV fluids 4. Hypokalemia, resolved, recheck labs in a.m. 5. Elevated TSH, free t4/Ft3 normal, likely subclinical, will need to be repeated in outpatient in 4-6 weeks. 6. Hodgkins Lymphoma Mixed Cellularity, following Dr. Petit 7. Hypertension, controlled, off Triamterene/HCTZ, monitor vitals closely 6, DVT Prophylaxis: SCDs, heparin. Code Visit Inpatient E&M: 64579 Subs Hosp L2
[2017-10-27 03:02] VITALS: BP 144/73; PULSE 65; RESP 18; TEMP 36.6; O2SAT 97
[2017-10-27 03:03] VITALS: PULSE 61
[2017-10-27] MEDS: 0.45% Normal Saline 1,000 ML 200 ML IV (03:45)
[2017-10-27 06:38] LABS: Albumin, Serum 2.7 g/dL (3.4-5.0); BUN 18 mg/dL (7-18); BUN/Creat Ratio 17.1 RATIO (10-20); Calcium,Total 10.3 mg/dL (8.5-10.1); Chloride 111 mmol/L (98-107); Creatinine, Serum 1.05 mg/dL (0.55-1.02); EST Glomerular Filtration Rate 55 mL/min (>60); Est Glom Filt Rate - Afr Amer 66 mL/min (>60); Estimated Creatinine Clearance 37.74 ml/min; Glucose 89 mg/dL (70-110); Phosphorus 2.3 mg/dL (2.5-4.9); Potassium 3.4 mmol/L (3.5-5.1); Sodium Level 142 mmol/L (136-145)
[2017-10-27 06:57] VITALS: PULSE 60
--- NOTE | 2017-10-27 07:22 | PCM.TXEXTCAR ---
- Diet 10/23/17 00:35 Diet: Regular Diet Food consistency:: Regular Liquid Consistency:: Regular/Thin - Routine Orders/Code Status Routine Lab Work: CBC - in 3 days, BMP - in 1 day - Therapies Weight Bearing: Weight bearing as tolerated Physical Therapy: Eval and Treat Occupational Therapy: Eval and Treat Speech Therapy: Eval and Treat - Allergies/Procedures Done in Hospital Allergies/Adverse Reactions: Allergies Sulfa (Sulfonamide Antibiotics) Allergy (Verified 05/08/17 13:11) Rash Eyedrops Adverse Reaction (Uncoded 10/23/17 00:58) Itching Procedures: 2-D Echocardiogram - Type of Care/Length of Stay Estimated LOS: Convalescent Care Less Than 30 days Type of Care Needed: Skilled Rehab Potential: Good Prognosis: Good - Additional Orders/Day of Discharge Day of Discharge: 10/27/17 - Dietary and Speech Recommendations Speech Linguistic Eval Summary: The patient is a 72 year old F right handed white female who came in to the ed last night at the behest of her daughter and friend due to gait abnormality, abnormal handwriting, and some slowness of her speech for about one week. no history of snoring or eds. takes daily asa at home. not on statin previously, no tobacco use. 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 Petit, History of Prior CVA who presents to the [facility] from [facility] [place] [facility] on 10/23/17 with history of ~ 1 week history of gait disturbance as well as irregular speech w/ garbled speech and difficulty expressing herself in addition to recent increased blurry vision with eventual family member encouragement to present to the ED for evaluation with transfer following OSH ED evaluation to [facility] for further CVA evaluation. She notes taking a daily baby aspirin. At the OSH ED in [place] work-up included T 36.3, BP 150/82, heart rate 64, respiratory rate 18, 95% on room air, CBC with WBC 5, hemoglobin 14, platelet 104 without shift, CMP with sodium 136, chloride 99, CO2 27, potassium 3.7, BUN/Cr 47/1.8 (baseline 0.8), glucose 104, Alk phos 180, AST/ALT 50/77, EKG NSR, trop 0.06, CXR without acute findings, CT head w/ evidence of remote lacunar right cerebellar infarct, acute or subacute left lacunar infarct in the temporal lobe.. Pt able to name 6/7 items on paper, but stated could name items earlier. Pt stated speech was improving, but this DIRECTOR TECHN[employer] could understand pt without any difficulty. Pt did have intermittent word finding issues. Pt unable to read board for orientation, but if written bigger than pt could read board. Pt passed dysphagia screening and did not have any s/s of penetration/aspiration during eval as pt was eating lunch. No swallow eval is necessary at this time. Pt agreed to be seen 1-2 additional times for education for word finding. - Follow Up Care Primary Care Physician: Justine Vargas [Primary Care Provider] - Please follow up with your Primary Care Physician in: within 2 weeks of discharge Please Follow Up With: Hunter Petit MD When: within 2 weeks
--- NOTE | 2017-10-27 07:24 | PCM.DC.SUM ---
Discharge Date and Diagnosis Date of Admission: 10/23/17 Date of Discharge: 10/27/17 - Primary Discharge Diagnosis CVA Hypercalcemia of malignancy - Secondary Discharge Diagnosis Chronic Problems (Last Updated 10/25/17 @ 12:14 by Olena Foreman) Hodgkin lymphoma, mixed cellularity (Chronic) History of CVA (cerebrovascular accident) (Chronic) Hospital Course and Treatment Imaging Results: Clinical Impression(s) from Imaging Studies Brain MRI 10/23/17 00:34 IMPRESSION: No acute intracranial abnormality. Cerebellar and left temporal chronic infarcts. Electronically Signed: Macy Jamison MD at 9:36 EST Tel , Service support , Head MRA 10/23/17 00:34 IMPRESSION: Normal MRA of the head Electronically Signed: Macy Jamison MD at 8:54 EST Tel , Service support , Neck MRA 10/23/17 00:34 IMPRESSION: Normal bilateral cervical carotid and vertebral arteries. Electronically Signed: Macy Jamison MD at 8:59 EST Tel , Service support , Neurology Summary of Care Provided: 72 y/o F with PMHx of Hodgkins Lymphoma, undergoing chemo and radiation following with Dr. Petit, History of Prior CVA admitted to [facility] from [facility] ED on 10/23/17 with history of ~ 1 week history of gait disturbance as well as irregular speech with garbled speech and difficulty expressing herself in addition to recent increased blurry vision. Active management has been: 1. Gait impairment, MRI brain shows acute cerebellar and left temporal chronic infarcts, on plavix, statin. on high dose statin, 2d-ECHO is normal, telemetry shows no acute events - NSR. Discharged to SNF. 2. 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 Hypernatremia, related to dehydration, resolved with IVF 4. Hypokalemia, K 3.4, replaced, will need recheck in outpt 5. Acute kidney injury, likely related to dehydration, resolved 4. Hypokalemia, resolved, recheck labs in a.m. 5. Elevated TSH, free t4/Ft3 normal, likely subclinical, will need to be repeated in outpatient in 4-6 weeks. 6. Hodgkins Lymphoma Mixed Cellularity, following Dr. Petit 7. Hypertension, controlled, off Triamterene/HCTZ, will need to be monitored in the outpatient. Discharge Diet: Low fat/ Low Cholesterol, 2000 mg Sodium Diet Discharge Activity: Return to Normal Activity Home Medications: Medications to take at Discharge Pred-G 1% Eye Drops 1 drop EACH EYE DAILY 09/09/15 RX: Multivit with Calcium,Iron,Min [Multiple Vitamins For Women] 1 each PO DAILY 09/09/15 RX: Potassium Chloride [K-Dur] 20 meq PO DAILY 09/09/15 RX: Vitamin K2 100 mcg PO DAILY 09/27/15 RX: Vits A,C,E/Lutein/Minerals [Ocuvite with Lutein Tablet] 1 each PO DAILY 09/27/15 RX: Magnesium 400 mg PO BID 12/06/15 Ocuvite with Lutein Tablet 1 tab PO DAILY 12/26/16 RX: Dorzolamide HCl [Trusopt] 1 drop OP BID 10/24/17 RX: Atorvastatin Calcium [Lipitor] 80 mg PO DAILY tablet 10/27/17 RX: Clopidogrel Bisulfate [Plavix] 75 mg PO DAILY tablet 10/27/17 Primary Care Physician: Justine Vargas [Primary Care Provider] - Please follow up with your Primary Care Physician in: within 2 weeks of discharge Please Follow Up With: Hunter Petit MD When: within 2 weeks Disposition: [facility] facility Minutes spent on discharge:: 25 Patient Condition:: Stable Meaningful Use Info Meaningful Use Diagnoses (Choose all that apply): Ischemic CVA - CVA Therapy Assessed for PT,OT and/or ST?: Yes - Ischemic Stroke Antithrombotic order at d/c?: Yes Reason antithrombotic not ordered: Treatment not Indicated Dx of Atrial fib/flutter?: No Anticoagulant at discharge?: No Reason anticoagulant not ordered: Treatment not Indicated Statins at discharge?: Yes Primary Dx Acute Ischemic CVA?: Yes IV tPA ordered during stay?: No Reason IV t-PA not ordered: Treatment not Indicated Code Visit Inpatient E&M: 90718 Disch Hosp
[2017-10-27] MEDS: Multivitamins,Ther W-Minerals Tablet 1 TABLET PO (07:58)
[2017-10-27 08:00] VITALS: O2SAT 96
[2017-10-27 08:15] VITALS: BP 146/71; PULSE 82; RESP 16; TEMP 36.7; O2SAT 96
[2017-10-27] MEDS: Clopidogrel Bisulfate 75 MG Tablet PO (09:12)
[2017-10-27] MEDS: Famotidine 20 MG Tablet PO (09:12)
[2017-10-27] MEDS: Magnesium Oxide 400 MG Tablet PO (09:12)
[2017-10-27] MEDS: Atorvastatin Calcium 80 MG Tablet PO (09:12)
[2017-10-27] MEDS: Dorzolamide 2% 10ml Bottle 1 DRP EACH EYE (09:12)
--- NOTE | 2017-10-27 10:49 | NURSING ---
Called report to Cassidy ARREOLA at [facility]
== END 2017-10-27 10:47 | disposition skilled nursing facility (03) | DRG 65 ==
PROVIDERS: Admitting Provider Family Medicine; Family Provider Nurse Practitioner Family; PCP Nurse Practitioner Family; Visit Provider Internal Medicine
DX: I63.9 Cerebral infarction, unspecified (principal); C81.20 Mixed cellularity Hodgkin lymphoma, unspecified site; N17.9 Acute kidney failure, unspecified; E87.0 Hyperosmolality and hypernatremia; E83.52 Hypercalcemia; Z79.899 Other long term (current) drug therapy; Z86.73 Personal history of transient ischemic attack (TIA), and cerebral infarction without residual deficits; E86.0 Dehydration; E87.6 Hypokalemia; R47.81 Slurred speech; R26.81 Unsteadiness on feet
CPT/HCPCS: 36415; 70544; 70547; 70551; 80048; 80061; 80069; 82306; 83735; 83970; 84100; 84439; 84443; 84481; 85025; 85027; 92507; 92523; 93306; 97110; 97116; 97166; 97530; 97535; 97802; J3489; J7030

== ENCOUNTER → 2017-11-15 13:46 | Outpatient (CLI) | payer MEDICARE, SELFPAY ==
--- NOTE | 2017-11-15 13:49 | CT_ITS ---
STUDY: CT CHEST WITH CONTRAST REASON FOR EXAM: Female, 72 years old. HODGKIN'S LYMPHOMA, hx of esoph. mass, appendectomy,1 ovary removed RADIATION DOSAGE (If Supplied By Facility): CTDIvol = ( 13.00 ) mGy, DLP = ( 988.31 ) mGycm TECHNIQUE: Transaxial imaging was performed following intravenous administration of 100ml ml of Isovue 300 contrast material. Individualized dose optimization techniques were used for this CT. COMPARISON: 1.317 FINDINGS: There is a right 5.1 mm upper lobe nodule. Series 2 image 44. There is a left 7.7 mm lower lobe nodule. There is no demonstrated pleural abnormality. There is mild cardiac enlargement. Normal mediastinum. Normal hilar regions. Normal enhanced pulmonary arteries. Normal aorta arch and descending thoracic aorta. Normal osseous structures. There is no demonstrated abnormality of the visualized upper abdomen. CT/Chest WITH Contrast IMPRESSION: Cardiomegaly. New right upper lobe nodule. Stable left lower lobe nodule. Follow up at routine intervals is recommended for a total of 2 years if clinically indicated. Fleischner Society recommendations. Less than 4mm. No follow up need unless pt is high risk. 4-6mm nodules: Follow up at 12 months. If no change in size no further follow up. For high risk patients, 4-6mm nodule requires 6-12mo follow up then 18-24mo follow up if no change. For lung nodules 6 to 8 mm in size, if the patient is considered high risk for lung cancer, follow-up CT in 3 to 6 months is recommended, then at 9-12 mo, and then at 24mo if no change. If the patient is considered low risk for lung cancer, follow-up CT in 6 to 12 months and then 18-24mo if no change is recommended. For >8mm nodules, low and high risk categories, Follow up CT at 3, 9, and 24months. Dynamic CT with IV or PET or Biopsy. Electronically Signed: Delroy Red MD at 17:47 EST , Service support ,
--- NOTE | 2017-11-15 13:49 | CT_ITS ---
STUDY: CT ABDOMEN AND PELVIS WITH CONTRAST REASON FOR EXAM: Female, 72 years old. Hodgkin's lymphoma. Esophageal mass. RADIATION DOSAGE (If Supplied By Facility): CTDIvol = ( ) mGy, DLP = ( ) mGycm TECHNIQUE: Transaxial images were obtained from the dome of the diaphragm to the symphysis pubis with oral contrast. 100ml ml of Isovue 300 contrast was administered. Sagittal and coronal images were reconstructed. Individualized dose optimization techniques were used for this CT. COMPARISON: 10/02/2016. FINDINGS: The visualized lung bases are unremarkable. The visualized portions of the heart are within normal limits. Normal liver. Normal gallbladder and extrahepatic biliary system. Normal spleen. Normal pancreas. Normal bilateral adrenal glands. Normal right kidney. This kidney has stable or 3 tiny nonobstructing stones in the lower pole. No hydronephrosis on either side. No evidence for renal mass. Normal visualized stomach. Normal small intestine. Within the cecum directly at the ileocecal valve, there may be a 4.2 cm mass versus collection of fecal material, as seen on coronal image 45. This was also present previously although not mentioned. Colonoscopy is recommended. Normal abdominal aorta. Normal inferior vena cava. Normal retroperitoneum. Normal urinary bladder. There is atrophy of the uterus. Normal abdominal wall. There are diffuse degenerative changes of the visualized lumbar spine. CT/Abdomen/Pelvis WITH Contrast IMPRESSION: No definite acute abnormality, but cannot exclude mass in the cecum which was also present on previous study. Colonoscopy recommended. Nonobstructing stones in lower pole of the left kidney were also present previously and have not changed. No adenopathy. Electronically Signed: Jose Lucero MD at 22:05 EST , Service support ,
== END ==
PROVIDERS: Family Provider Nurse Practitioner Family; PCP Nurse Practitioner Family; Visit Provider Internal Medicine Medical Oncology
DX: C81.20 Mixed cellularity Hodgkin lymphoma, unspecified site (principal); E83.52 Hypercalcemia
CPT/HCPCS: 71260; 74177; Q9967

== ENCOUNTER → 2017-11-20 09:20 | Outpatient (CLI) | payer MEDICARE, SELFPAY ==
--- NOTE | 2017-11-20 09:21 | NM_ITS ---
CLINICAL: 72-year-old female with reported history of lymphoma and bilateral knee pain. WHOLE BODY 99m Tc MDP RADIONUCLIDE BONE SCINTIGRAPHY COMPARISON: CT of the chest, abdomen and pelvis reports 11/15/2017 FINDINGS: Following the intravenous administration of 26.0 mCi of 99m Tc MDP, whole body bone images reveal: 1. Increased radiopharmaceutical concentration is demonstrated in the upper and lower cervical spine posteriorly on the left, mid cervical spine posteriorly on the right, fourth-fifth lumbar vertebra posteriorly on the right, posterior midline sacrum, bilateral wrist articulations, the medial tibial compartments of both knees, the medial femoral compartment of the left knee, the right midfoot. 2. The remaining skeletal structures are scintigraphically unremarkable with normal-appearing renal images and urinary bladder activity identified. An increase in uptake is demonstrated in the right maxilla-lacrimal bone, inter-orbital aspect of the skull most consistent with periostitis. NM/Bone Scan Whole Body IMPRESSION: 1. The increase in radiopharmaceutical concentration identified in the cervical and lumbar spine, sacrum, right and left wrist articulations, knees bilaterally and right midfoot is most consistent with degenerative arthritis. Correlation with plain film radiography may be of benefit in the region of the left knee articulation. 2. There is no definitive typical scintigraphic evidence of osseous neoplastic disease on the current examination. Electronically Signed: Rolf Ellington DO at 10:34 EST Tel , Service support ,
== END ==
PROVIDERS: Family Provider Nurse Practitioner Family; PCP Nurse Practitioner Family; Visit Provider Internal Medicine Medical Oncology
DX: C81.20 Mixed cellularity Hodgkin lymphoma, unspecified site (principal); E83.52 Hypercalcemia; Z85.71 Personal history of Hodgkin lymphoma
CPT/HCPCS: 78306

== ENCOUNTER → 2019-01-13 13:35 | Outpatient (CLI) | payer MEDICARE, SELFPAY ==
--- NOTE | 2019-01-13 13:37 | CT_ITS ---
STUDY: CT CHEST WITH CONTRAST REASON FOR EXAM: Female, 74 years old. Follow-up lymphoma RADIATION DOSAGE (If Supplied By Facility): CTDIvol = ( 14.72 ) mGy, DLP = ( 338.86 ) mGycm TECHNIQUE: Transaxial imaging was performed following intravenous administration of 100 IV Isovue 370. Multiplanar coronal and sagittal images were reformatted. Individualized dose optimization techniques were used for this CT. COMPARISON: October 02, 2016, November 15, 2017 CT scan chest FINDINGS: There is a 2 mm nodular density in the lung periphery on the right on image #72 stable since prior study. There is minimal apical scarring right greater than left stable since prior study. There is a small focal left lower lobe nodule stable since prior study measuring 4.4 mm. There is no visualized pulmonary edema. There is a minimal focus of right lung base fibrosis stable since prior study. There is calcification or repair at the left side of the heart. There is mild to moderate cardiac enlargement. There is a nonspecific fat filled benign-appearing lymph node measuring 1.4 cm in the precarinal space. Normal hilar regions. Normal enhanced pulmonary arteries. Normal aorta arch and descending thoracic aorta. There are multi-level degenerative changes of the thoracic spine. There is mild degenerative change in the bilateral shoulder joints similar to prior study. The liver appears Enlarged fatty infiltrated. The spleen measures 10.7 cm in AP diameter. There is a benign-appearing left renal cyst measuring 9.6 mm stable since prior study. CT/Chest WITH Contrast IMPRESSION: Few scattered areas of fibrotic change and scarring within the lungs without evidence of focal infiltrate. No suspicious mediastinal or hilar lymphadenopathy. Cardiomegaly Borderline enlarged fatty infiltrated liver. Electronically Signed: Kristal Stewart MD at 15:56 EDT Tel , Service support ,
[2019-01-13 14:25] LABS: CREATININE FINGERSTICK 0.9 mg/dL (0.55-1.02); EGFR FINGERSTICK > 60.0000 mL/min (>60)
== END ==
PROVIDERS: Family Provider Nurse Practitioner Family; PCP Nurse Practitioner Family; Referring Provider Internal Medicine Medical Oncology; Visit Provider Internal Medicine Medical Oncology
DX: C81.20 Mixed cellularity Hodgkin lymphoma, unspecified site (principal); R91.1 Solitary pulmonary nodule
CPT/HCPCS: 71260; Q9967

== ENCOUNTER → 2020-02-16 14:12 | Outpatient (CLI) | payer MEDICARE, SELFPAY ==
[2019-01-26 14:43] VITALS: BMI 27.1
--- NOTE | 2020-02-16 14:12 | CT_ITS ---
STUDY: CT CHEST/THORAX WITH CONTRAST REASON FOR EXAM: Female, 75 years old. LUNG NODULE? 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 RADIATION DOSAGE (If Supplied By Facility): CTDIvol = ( 9.90 ) mGy, DLP = ( 378.46 ) mGycm TECHNIQUE: Transaxial imaging was performed following intravenous administration of IV 100mL Isovue-300. Multiplanar coronal and sagittal images were reformatted. Individualized dose optimization techniques were used for this CT. COMPARISON: CT Chest with Contrast January 13, 2019 FINDINGS: Stable foci of chronic peribronchial thickening or other scarring in the right superior sulcus. Stable 1-2 mm nodular density in the posterolateral right lower lobe on series 4 image 77, series 602 image 157. 3-4 mm anterior peripheral density in the right middle lobe abutting the pleural surface on series 4 image 81 is also unchanged. Stable minor subsegmental volume loss or scarring in the posterior periphery of the basilar right lower lobe. Stable 1-2 mm nodule in the posterior periphery of the left lower lobe on series 4 image 80, series 601 image 196, as well as stable 2-3 mm nodule in the posterior left lower lobe at the mid chest on series 4 image 67, series 601 image 187. There is no demonstrated pleural abnormality. Normal heart size and pericardium. Incidental note of dense calcification in the mitral valve annulus and/or cordae tendinae. Normal mediastinum. Normal hilar regions. Normal enhanced pulmonary arteries. There is focal atherosclerotic calcification of the aortic arch near the takeoff of the left subclavian artery trunk. There are multi-level spondylotic degenerative changes of the thoracic spine. There are old healed fracture deformities of the lateral left 2-4 ribs. Stable rim enhancing or partially rim calcified 9 mm lesion of indeterminate etiology and significance seen in the anterior upper pole of the spleen. There is a small hiatal hernia. CT/Chest WITH Contrast IMPRESSION: 1. Stable enhanced CT Chest examination since December 2018. 2. There are stable sub-6 mm nodular densities in each lung, as described. Per Fleischner criteria, no specific radiographic follow-up is needed. 3. Stable calcification in the left heart involving the mitral valve annulus and/or cordae tendinae. The heart size is normal. 4. Small hiatal hernia. 5. Stable 9 mm calcified or rim-enhancing lesion in the anterior superior aspect of the spleen. Electronically Signed: Adalberto Epps MD at 15:12 EDT , Service support ,
[2020-02-16 14:36] LABS: CREATININE FINGERSTICK 0.8 mg/dL (0.55-1.02); EGFR FINGERSTICK > 60.0000 mL/min (>60)
== END ==
PROVIDERS: PCP Family Medicine; Referring Provider Internal Medicine Medical Oncology; Visit Provider Internal Medicine Medical Oncology
DX: R91.8 Other nonspecific abnormal finding of lung field (principal); Z85.71 Personal history of Hodgkin lymphoma; Z92.21 Personal history of antineoplastic chemotherapy
CPT/HCPCS: 71260; Q9967

== ENCOUNTER → 2022-02-15 | Outpatient (CLI) | payer MEDICARE, SELFPAY ==
--- NOTE | 2022-02-15 13:36 | CT_ITS ---
STUDY: CT CHEST WITH CONTRAST REASON FOR EXAM: Female, 77 years old. LUNG NODULES. History of lung cancer. RADIATION DOSAGE (If Supplied By Facility): CTDIvol = ( 10.98 ) mGy, DLP = ( 186.16 ) mGycm TECHNIQUE: Transaxial imaging was performed following intravenous administration of IV 100mL Isovue-300. Individualized dose optimization techniques were used for this CT. COMPARISON: Comparison is made with prior study dated 02/16/2020. FINDINGS: CHEST Small benign-appearing bilateral axillary lymph nodes. Stable focal scarring in the lateral aspect of the right upper lobe. Stable 1.5 mm noncalcified nodule in the posterolateral aspect of the right lower lobe as seen on axial image #73. Stable linear scarring in the anterior aspect of the lingular segment of the left upper lobe. There is a 5 mm noncalcified nodule in the peripheral lateral aspect of the left lower lobe anteriorly as seen on axial image #80. Diffuse emphysematous changes. There is no demonstrated pleural abnormality. Cardiomegaly. Enlargement of the left atrium. There are calcifications of the coronary arteries. There are multiple small lymph nodes within the mediastinum, which are normal in size and morphology most compatible with reactive lymph hyperplasia. Normal hilar regions. Normal unenhanced pulmonary arteries. Normal aorta arch and descending thoracic aorta. There are multi-level degenerative changes of the thoracic spine. Stable calcified nodule in the anterior aspect of the superior portion of the spleen. CT/Chest WITH Contrast IMPRESSION: Stable examination. Electronically Signed: Maik Amaya MD at 14:30 EDT ,
[2022-02-15 13:51] LABS: CREATININE FINGERSTICK < 0.9 mg/dL (0.55-1.02); EGFR FINGERSTICK > 60.0000 mL/min (>60)
== END | disposition home or self-care (01) ==
LOC: CT 13:24
PROVIDERS: PCP Family Medicine; Visit Provider Internal Medicine Medical Oncology
DX: R91.1 Solitary pulmonary nodule (principal); Z85.118 Personal history of other malignant neoplasm of bronchus and lung
CPT/HCPCS: 71260; Q9967